=== PATIENT | female | born 1970 | race Caucasian/White ===

== ENCOUNTER → 2017-12-27 09:03 | Outpatient (CLI) | payer OTHER, SELFPAY ==
--- NOTE | 2017-12-27 09:06 | MM_ITS ---
MM Dig screening mamm BI w/CAD CAD Screening ORDERING PHYSICIAN : Deni Pham MD PATIENT AGE: 47 years GENDER: Female COMPARISON: Previous mammograms: March 2016 & February 2014 & January 2013 HISTORY. 47-year-old. Taking estradiol. Previous cyst aspiration needle biopsy left breast. Family history. Mother and cousin with breast cancer premenopausal TECHNIQUE: Standard CC and MLO images were obtained. R2 CAD reviewed. FINDINGS: Moderately dense breast bilaterally diffuse fibroglandular elements. However the prior studies are helpful and supportive stable appearance. Stable minor asymmetry. No significant new findings. Bilateral follow-up one year recommended. RIGHT BREAST:No significant new findings. Minimal density at the lateral retroareolar region is similar to thousand 14 dissipates on the MLO view.. Clip from previous percutaneous biopsy at the medial right breast LEFT BREAST:. No new findings. . Fibroglandular elements are most evident upper-outer quadrant deep left breast appears similar to previous studies dating back to 2012. IMPRESSION: Stable mammogram with no significant new areas of concern . Bilateral follow-up in one year recommended BI-RADS Category: 1 Negative RECOMMENDED FOLLOW-UP: 1YR - 1 YEAR FOLLOW-UP (A letter has been sent to the patient regarding results of the study.)
== END ==
PROVIDERS: PCP Internal Medicine; Visit Provider Nurse Practitioner Obstetrics & Gynecology
DX: Z12.31 Encounter for screening mammogram for malignant neoplasm of breast (principal)
CPT/HCPCS: 77067

== ENCOUNTER → 2018-10-22 14:45 | Outpatient (CLI) | payer OTHER, SELFPAY ==
--- NOTE | 2018-10-22 14:48 | XR_ITS ---
EXAM: XR cervical spine 5V HISTORY: Neck pain and stiffness ITS.REASON: CERVICALGIA,NECK SPASM ORDERING PHYSICIAN: Jeromy Abraham PATIENT AGE: 48 years COMPARISON: 10/26/2011 FINDINGS: There is straightening of the cervical lordosis which may be due to patient positioning or muscle spasm. No fracture or dislocation is evident. There is mild degenerative disc disease at C5-C6 with decrease in the disc space and small endplate osteophytes. There is mild foraminal narrowing on the left at C5-C6. No lytic or blastic change. No evidence of cervical rib. IMPRESSION: Mild degenerative disc disease at C5-C6 with mild left foraminal narrowing at that level. The degenerative disc disease has somewhat progressed compared to the previous exam
== END ==
PROVIDERS: PCP Internal Medicine; Visit Provider Internal Medicine
DX: M54.2 Cervicalgia (principal); M62.838 Other muscle spasm
CPT/HCPCS: 72050

== ENCOUNTER → 2019-01-06 08:35 | Outpatient (CLI) | payer OTHER, SELFPAY ==
--- NOTE | 2019-01-06 08:37 | MM_ITS ---
MM Dig screening mamm BI w/CAD CAD Screening COMPARISON: Digital mammograms with CAD 04/12/2016 and 12/27/2017 INDICATION: There is a history of breast cancer in patient's mother and cousin both diagnosed before menopause. There has been a previous cyst aspiration left breast. TECHNIQUE: Standard CC and MLO images were obtained. R2 CAD reviewed. FINDINGS: There is a diffusely dense and heterogenic parenchymal pattern lessening the sensitivity of mammography. The findings are bilateral and symmetrical. There is a biopsy clip right breast and a mole marker right breast and a mole marker left breast. There is no suspicious lesion and no suspicious microcalcifications. IMPRESSION: Diffusely dense parenchymal pattern with no suspicious lesion seen BI-RADS Category: 2 Benign Finding(s) RECOMMENDED FOLLOW-UP: 1YR - 1 YEAR FOLLOW-UP (A letter has been sent to the patient regarding results of the study.)
== END ==
PROVIDERS: PCP Internal Medicine; Visit Provider Nurse Practitioner Obstetrics & Gynecology
DX: Z12.31 Encounter for screening mammogram for malignant neoplasm of breast (principal)
CPT/HCPCS: 77067

== ENCOUNTER → 2019-07-28 08:32 | Outpatient (CLI) | payer OTHER, SELFPAY | PROVIDERS: PCP Internal Medicine; Visit Provider Physician Assistant | DX: R00.2 Palpitations (principal) | CPT/HCPCS: 93225 ==

== ENCOUNTER → 2019-07-30 11:10 | Outpatient (CLI) | payer OTHER, SELFPAY ==
--- NOTE | 2019-07-30 11:13 | CA_ITS ---
APPROVED REPORT EXAM: Comprehensive 2D, Doppler, and color-flow Echocardiogram Patcher Bowling Ball: Mariann Barcenas RDCS Ht: 5 ft 5 in Wt: 160lbs BSA: 1.80 BP: 153/97 mmHg Indications: Shortness of Breath, Palpitations, Hypertension/HDD 2D Dimensions LVOT 1.90 cm (M/F) 1.5-2.5 M-Mode Dimensions RVDd 2.30 cm (0.9-2.6) LA Diam 2.70 cm (1.9-4.0) LVDd 5.10 cm (3.5-5.7) Ao Diam 3.00 cm (2.0-3.7) LVDs 3.90 cm (3.5-5.7) AV Cusp 1.70 cm (1.5-2.6) IVSd 0.70 cm (0.6-1.1) PWd 0.70 cm (0.6-1.1) EF (Teich) 46.90% FS 23.50% EDV (Teich) 124.00 mL ESV (Teich) 65.90 mL LV Diastology E/A Ratio 1.3 MED E' 7.60 (< 7 cm/sec) E'/MED E' Ratio 9.20 (>14) LAT E' 10.00 (<10 cm/sec) E/LAT E' Ratio 7.00 (>14) Mitral Valve MV E Max Dario. 69.60 (40-130 cm/s) MV A Velocity 54.80 (40-130 cm/s) E/A Ratio 1.30 Left Ventricle Left atrium is upper limit of the normal size, left ventricle is normal size, left ventricle wall thickness is upper limit of the normal, there is preserved left ventricular systolic function, visually estimated ejection fraction 55% with no regional wall motion abnormality. Diastolic parameters are within normal range. Right Ventricle Right atrium and right ventricular normal size and contractility. Aortic Valve Aortic valve is grossly normal, there is no aortic stenosis aortic insufficiency. Mitral Valve Mitral valve is grossly normal, there is no mitral stenosis, there is mild mitral regurgitation. Tricuspid Valve Tricuspid valve is grossly normal, there is mild tricuspid regurgitation, tricuspid regurgitation jet velocity is inadequate for calculation of the right ventricular systolic pressure. Pulmonic Valve Pulmonic valve is poorly visualized. Great Vessels Aortic root is normal size. Pericardium No significant pericardial effusion noted. Conclusion 1. Normal left ventricular size, preserved left ventricular systolic function, visually estimated ejection fraction 55% with no regional wall motion abnormality, diastolic parameters are within normal range. 2. Mild mitral and tricuspid regurgitation 3. No significant pericardial effusion noted. Electronically signed by : Andrew Burns, 07/30/2019 16:57:47
== END ==
PROVIDERS: PCP Internal Medicine; Visit Provider Physician Assistant
DX: R00.2 Palpitations (principal); R06.00 Dyspnea, unspecified
CPT/HCPCS: 93306

== ENCOUNTER → 2020-02-08 08:41 | Outpatient (CLI) | payer OTHER, SELFPAY ==
--- NOTE | 2020-02-08 08:42 | MM_ITS ---
PROCEDURE: MM DIG SCREENING MAMM BI W/CAD Digital Breast Tomosynthesis Included CLINICAL INDICATION: screening xmg There is a history of breast cancer patient's mother and cousin both diagnosed before menopause. There has been a previous cyst aspiration and needle biopsy right breast. COMPARISON: [id number] DIG MAMM-DX UNI ADD VIEWS-RT from 04/25/2016 [facility] MM Dig screening mamm BI w/CAD from 12/27/2017 [facility] MM Dig screening mamm BI w/CAD from 01/06/2019 TECHNIQUE: Standard CC and MLO images and 3D Tomosynthesis was obtained. R2 CAD reviewed. FINDINGS: Prominent somewhat heterogenic fibroglandular densities are seen throughout both breast primarily upper outer quadrants. There is a mole marker on each breast and there is a biopsy clip right breast. Shawn images are most helpful in this type of dense breast parenchyma. There is no new or suspicious lesion in either breast and no suspicious microcalcifications. There are small nodes right axilla. IMPRESSION: Stable dense parenchymal pattern with no suspicious lesions seen BI-RAD Category: 2 Benign Finding(s) FOLLOW-UP: 1YR 1 Year Follow-up (A letter has been sent to the patient regarding results of the study.) Dictated by: Dr. Rosendo Knox MD 02/08/2020 16:[address] Rosendo Knox MD in [place] 02/08/2020 16:00
== END ==
PROVIDERS: PCP Internal Medicine; Visit Provider Nurse Practitioner Obstetrics & Gynecology
DX: Z12.31 Encounter for screening mammogram for malignant neoplasm of breast (principal)
CPT/HCPCS: 77063; 77067

== ENCOUNTER → 2020-09-15 11:29 | Outpatient (CLI) | payer OTHER, SELFPAY ==
[2020-09-15 14:22] LABS: Coronavirus 19 IgG Antibody Negative (Negative); Coronavirus 19 IgM Antibody Negative (Negative)
== END ==
PROVIDERS: Visit Provider Internal Medicine Gastroenterology
DX: Z01.818 Encounter for other preprocedural examination (principal); Z13.810 Encounter for screening for upper gastrointestinal disorder
CPT/HCPCS: 36415; 86328

== ENCOUNTER 2020-09-16 06:38 | Day surgery (SDC) | payer OTHER, SELFPAY ==
[2020-09-13 12:44] VITALS: BMI 26.6
[2020-09-16] VITALS (7 sets, daily range): BP systolic 98–121; BP diastolic 68–82; PULSE 79–89; RESP 16–18; TEMP 36.3; O2SAT 96–100
--- NOTE | 2020-09-16 07:34 | HMH.ANESCL ---
[facility] Anesthesia Checklist - Patient Identification Patient Identification: Arm Band, Verbal (Name & ) - Structural Data Admitted From: Home Planned Operative Procedure/s: EGD Consent for Planned Operative Procedure(s) Verified: Yes Verified Documents: Surgical Consent, History and Physical - NPO Status Verified Time NPO: 00:00 - Chart Verification Results Verified: CBC, BMP - Additional verifications Anesthesia Reactions: Yes (PONV) - Airway Assessment C-Spine Mobility Assessed: Yes TMJ Mobility Assessed: Yes Dentition: Good Dentition - Neurological Assessment Level of Consciousness: Awake, Alert, Appropriate, Follows Commands Hx Seizures: No Numbness or tingling in extremities: No - Anesthesia Plan Anesthesia Risk discussed: Yes Anesthesia Plan: Verified ASA Class: II Anesthesia Type: MAC [facility] History I have reviewed the patient's past medical history: Yes Medical History: Reports:: Anxiety, Cancer, Gastroesophageal Reflux Disease(GERD) Denies:: Asthma, Depression, Diabetes Mellitus Type 1, Diabetes Mellitus Type 2, Internal Pacemaker, MRSA, Seizures *Have you ever received a pneumonia vaccine?: Yes *Have you received a flu vaccine this season?: Yes Anesthesia experience/problems:: PONV Laterality Cases: Bilateral: Tonsillectomy Other Surgeries: Yes: Cholecystectomy, Hysterectomy-Total. No: Pacemaker Amputation: No Fractures: No - *Social History Last grade of school completed: Some college Smoking Status: Never smoker Alcohol Intake: current Alcohol Intake Frequency:: holidays/special occasions only Substance Use Type: denies use *Occupational Status:: employed Housing: house Household Members: spouse *Travel in the last 8 weeks: None - Psychiatric History Pschychiatric History:: Reports:: Anxiety Denies:: Depression Family Hx:: Cancer, Diabetes, Heart Attack
--- NOTE | 2020-09-16 07:50 | P.PCN_ITS ---
[facility] Procedure Note Procedure Note:: Upper Endoscopy Procedure Report: Esophagogastroduodenoscopy with cold biopsies and TTS balloon dilation Endoscopost: Carlos Moreno II, MD Referring Physician: Jeromy Abraham MD Date of Procedure: September 16, 2020 Equipment: Olympus GIF 180 standard upper endoscope Sedation: MAC sedation Indications: Mrs. Matos is a 50-year-old female with epigastric abdominal discomfort and dyspepsia. She also has had fullness and early satiety. She reports some dysphagia and globus sensation. She has had 2 regurgitate intermittently. She reports retrosternal chest pain and pressure intermittently with heartburn and reflux. She reports bloating but no nausea. She does have some constipation. EGD is performed for further evaluation. Procedure: Prior to the procedure, a history and physical exam was performed, and patient's medications and allergies were reviewed. The risks, benefits and alternatives of the sedation and procedure were discussed with the patient. All questions were answered and informed consent was obtained. The patient was brought to the procedure room. Patient identification and proposed procedure were verified by the physician and the nurse. The patient was placed in a left lateral decubitus position and the scope was passed under direct vision. Throughout the procedur e, the patient's blood pressure, pulse, and oxygen saturations were monitored continuously. The upper GI endoscopy was accomplished without difficulty. The patient tolerated the procedure well. Findings: The scope was passed directly into the upper esophagus and advanced to the third portion of the duodenum. The post bulbar duodenum and duodenal bulb were normal with normal mucosa and conniventes. The scope was withdrawn through a normal duodenal bulb and pylorus into the stomach. There was bile reflux with linear reactive gastropathy of the antrum and body of the stomach. The remainder of the antrum, body and fundus of the stomach were grossly normal. Upon retroflexion there was no hiatal hernia. 2 biopsies were taken in the antrum and along the lesser curvature for histology to rule out gastritis and/or H pylori. The scope was then withdrawn into the esophagus. There was a serrated Z-line but no evidence of reflux esophagitis or Barragan's. Biopsies were taken at the GE junction. There were tertiary contractions and evidence of moderate esophageal dysmotility. The entire esophagus was dilated to 60 German/20 mm with a TTS hydrostatic balloon. There was some mild resistance at the cricopharyngeus. The remainder of the esophageal mucosa was normal. Impression: 1. Nonerosive GERD with moderate esophageal dysmotility and cricopharyngeal spasm status post dilation to 20 mm 2. Bile reflux with linear reactive gastropathy Plan: The patient does have functional dyspepsia and functional GERD. This is related to gas pressure gradients from obstipation. We will discuss additional dietary measures and treatment options. I will follow-up the biopsies.
== END 2020-09-16 08:46 | disposition home or self-care (01) ==
LOC: OUTP 06:39
PROVIDERS: PCP Internal Medicine; Visit Provider Internal Medicine Gastroenterology
PROC: 0DJ08ZZ Inspection of Upper Intestinal Tract, Via Natural or Artificial Opening Endoscopic (ICD-10-PCS; CPT 43235; principal; 2020-09-16 07:30)
DX: K21.9 Gastro-esophageal reflux disease without esophagitis (principal); K22.4 Dyskinesia of esophagus; J39.2 Other diseases of pharynx; K31.9 Disease of stomach and duodenum, unspecified; F41.9 Anxiety disorder, unspecified; Z80.9 Family history of malignant neoplasm, unspecified; Z83.3 Family history of diabetes mellitus; Z82.49 Family history of ischemic heart disease and other diseases of the circulatory system; Z84.89 Family history of other specified conditions; Z88.6 Allergy status to analgesic agent; Z88.8 Allergy status to other drugs, medicaments and biological substances
CPT/HCPCS: 43239; 43249; C1726

== ENCOUNTER → 2020-09-28 13:12 | Outpatient (CLI) | payer OTHER, SELFPAY ==
--- NOTE | 2020-09-28 13:16 | XR_ITS ---
PROCEDURE: XR TIBIA FIBULA LT 2V CLINICAL INDICATION: pain Fall with injury and pain guided I did COMPARISON: CR XR KNEE LT 4V from 09/28/2020 FINDINGS: No fracture or dislocation. No lytic or blastic change. There is normal mineralization. The joint spaces are well-preserved. No significant degenerative/arthritic changes. No erosive changes evident. Other findings:None. IMPRESSION: No acute findings. Dictated by: Mason Esquivel MD 09/28/2020 14:06 Mason Esquivel MD in [place] 09/28/2020 14:06
--- NOTE | 2020-09-28 13:16 | XR_ITS ---
PROCEDURE: XR KNEE LT 4V CLINICAL INDICATION: knee pain due to fall COMPARISON: No exams were available for comparison FINDINGS: No fracture or dislocation. No lytic or blastic change. There is normal mineralization. The joint spaces are well-preserved. No significant degenerative/arthritic changes. No erosive changes evident. Other findings:None. IMPRESSION: No acute findings. Dictated by: Mason Esquivel MD 09/28/2020 14:05 Mason Esquivel MD in [place] 09/28/2020 14:05
== END ==
PROVIDERS: PCP Internal Medicine; Visit Provider Orthopaedic Surgery
DX: M79.662 Pain in left lower leg (principal); M25.562 Pain in left knee
CPT/HCPCS: 73564; 73590

== ENCOUNTER 2020-09-29 14:09 | Outpatient (RCR) | payer OTHER, SELFPAY | END 2020-09-29 14:27 | disposition home or self-care (01) | LOC: PT 14:09 | PROVIDERS: Visit Provider Orthopaedic Surgery | DX: M25.562 Pain in left knee (principal); S80.12XA Contusion of left lower leg, initial encounter | CPT/HCPCS: 97760 ==

== ENCOUNTER → 2021-02-22 08:36 | Outpatient (CLI) | payer OTHER, SELFPAY ==
--- NOTE | 2021-02-22 08:36 | MM_ITS ---
PROCEDURE: MM DIG SCREENING MAMM BI W/CAD Digital Breast Tomosynthesis Included CLINICAL INDICATION: screening xmg There is a history of breast cancer in patient's mother diagnosed before menopause and the patient's maternal cousin diagnosed before menopause. There has been a previous biopsy right breast for benign disease. Patient currently is on estrogen. The patient complains of thickness and pain upper central left breast COMPARISON: MG [facility] MM Dig screening mamm BI w/CAD from 12/27/2017 MG [facility] MM Dig screening mamm BI w/CAD from 01/06/2019 MG MM DIG SCREENING MAMM BI W/CAD from 02/08/2020 TECHNIQUE: Standard CC and MLO images and 3D Tomosynthesis was obtained. R2 CAD reviewed. FINDINGS: There is a markedly and diffusely dense and heterogenic parenchymal pattern lessening the sensitivity mammography. The findings are bilateral and symmetrical. Shawn images are most helpful with this type of dense breast parenchyma. There is a mole marker right breast and a biopsy clip right breast. There is no suspicious lesion in either breast and no suspicious microcalcifications. There is no new or suspicious lesion in either breast and no suspicious microcalcifications. IMPRESSION: Stable diffusely dense and heterogenic parenchymal pattern with no suspicious lesions seen BI-RAD Category: 2 Benign Finding(s) FOLLOW-UP: 1YR 1 Year Follow-up (A letter has been sent to the patient regarding results of the study.) Dictated by: Dr. Rosendo Knox MD 02/25/2021 13:05 Dr. Rosendo Knox MD in [place] 02/25/2021 13:05
== END ==
PROVIDERS: PCP Internal Medicine; Visit Provider Nurse Practitioner Obstetrics & Gynecology
DX: Z12.31 Encounter for screening mammogram for malignant neoplasm of breast (principal)
CPT/HCPCS: 77063; 77067

== ENCOUNTER → 2021-09-02 11:05 | Outpatient (CLI) | payer OTHER, SELFPAY ==
[2021-09-02 12:33] LABS: Coronavirus 19, PCR Not Detected (NotDetected); Influenza A, PCR Not Detected (NotDetected); Influenza B, PCR Not Detected (NotDetected)
== END ==
PROVIDERS: PCP Internal Medicine; Visit Provider Nurse Practitioner Family
DX: Z20.822 Contact with and (suspected) exposure to COVID-19 (principal)
CPT/HCPCS: C9803; U0003; U0005

== ENCOUNTER → 2022-03-15 10:16 | Outpatient (CLI) | payer OTHER, SELFPAY ==
--- NOTE | 2022-03-15 10:21 | XR_ITS ---
FINAL REPORT CLINICAL HISTORY: LEFT FOOT PAIN. HISTORY OF OLD TRAMMA FINDINGS: LEFT FOOT Three views were obtained. There is no acute fracture or dislocation. The joint spaces appear normal. No soft tissue abnormality is identified. IMPRESSION: No acute process. Reviewed, Interpreted and Dictated by Pk Rosas MD Transcribed by Yasmeen Washington Authenticated by Pk Rosas MD on 03/15/2022 11:20:27 AM [facility]
== END ==
PROVIDERS: PCP Internal Medicine; Visit Provider Internal Medicine
DX: M79.672 Pain in left foot (principal); Z87.828 Personal history of other (healed) physical injury and trauma
CPT/HCPCS: 73630

== ENCOUNTER → 2022-03-29 15:37 | Outpatient (CLI) | payer OTHER, SELFPAY ==
--- NOTE | 2022-03-29 15:42 | MR_ITS ---
PROCEDURE INFORMATION: Exam: MR Left Lower Extremity Joint Without Contrast; Ankle Exam date and time: 03/29/2022 3:52 PM Age: 51 years old Clinical indication: Pain; Ankle; Left; Additional info: Ankle pain. Medial sided ankle pain with pain around toes that radiates to dorsal aspect [id number]. No recent injury or trauma. Swelling medial and dorsal aspect of ankle. PT was in prone plantar flexed position TECHNIQUE: Imaging protocol: MR of the Left lower extremity without contrast. Exam focused on the ankle. COMPARISON: CR XR FOOT LT MIN 3V 03/15/2022 10:27 AM FINDINGS: Bones and joint spaces: No acute fracture or stress reaction. Small focus of nonspecific subchondral edema in the posterior tibial plateau. Subchondral cyst in the 2nd metatarsal base. Minimal to mild degenerative changes of the foot. LIGAMENTS: Distal tibiofibular syndesmosis: Unremarkable. No tear. Anterior talofibular ligament: Unremarkable. No tear. Posterior talofibular ligament: Unremarkable. No tear. Calcaneofibular ligament: Unremarkable. No tear. Deltoid ligament complex: Unremarkable. No tear. Lisfranc ligament: Intact. TENDONS: Flexor tendons of foot: Mild tenosynovitis of the flexor hallucis longus tendon. Tibialis posterior tendon: Mild tenosynovitis of the posterior tibialis tendon. Peroneal tendons: Unremarkable as visualized. Extensor tendons of foot: Unremarkable as visualized. Tibialis anterior tendon: Unremarkable as visualized. Achilles tendon: Unremarkable as visualized. Tarsal canal (Sinus tarsi): Unremarkable. Normal signal of the fat. Tarsal tunnel: Unremarkable. Muscles: Unremarkable. Soft tissues: Nonspecific bimalleolar subcutaneous edema is present, medial greater than lateral. No organized/drainable fluid collection. Plantar fascia: Plantar fascia appears within normal limits, without significant thickening or tear. Nonspecific heterogeneous appearance of subcutaneous adipose tissue in the heel. IMPRESSION: 1. Mild tenosynovitis of the flexor hallucis longus and posterior tibialis tendons. No tendon tear. 2. Nonspecific mild bimalleolar subcutaneous edema, medial greater than lateral. 3. Negative for fracture, stress reaction, and ligament tear.
== END ==
PROVIDERS: PCP Internal Medicine; Visit Provider Orthopaedic Surgery
DX: M25.572 Pain in left ankle and joints of left foot (principal)
CPT/HCPCS: 73721

== ENCOUNTER → 2022-09-12 15:50 | Outpatient (CLI) | payer OTHER, SELFPAY ==
--- NOTE | 2022-09-12 15:50 | MM_ITS ---
PROCEDURE INFORMATION: Exam: MG Bilateral Screening 3D Mammography Exam date and time: 09/12/2022 3:45 PM Age: 52 years old Clinical indication: Screening. Her mother had breast cancer at age 42 and a maternal aunt and maternal cousin had breast cancer. TECHNIQUE: Imaging protocol: Bilateral Screening tomosynthesis and 2D mammography including computer-aided detection (CAD) when performed. COMPARISON: 1. MG MM DIG SCREENING MAMM BI W/CAD 02/22/2021 8:50 AM 2. MG MM DIG SCREENING MAMM BI W/CAD 02/08/2020 9:46 AM 3. MG [facility] MM Dig screening mamm BI w/CAD 01/06/2019 8:51 AM 4. MG [facility] MM Dig screening mamm BI w/CAD 12/27/2017 9:14 AM FINDINGS: MAMMOGRAPHY: Breast composition: The breasts are heterogeneously dense, which may obscure small masses. Mass: No suspicious mass. Architectural distortion: None. Calcifications: No suspicious calcifications. Asymmetric density: None. Skin thickening: None. Axillary adenopathy: None. Other: Right biopsy clip. IMPRESSION: No mammographic evidence of malignancy. Annual screening is recommended unless otherwise clinically indicated. Given the reported risk factors coupled with the patient's breast density, a breast cancer risk assessment may prove useful for further evaluation. ASSESSMENT: BI-RADS Category 2: Benign
== END ==
PROVIDERS: PCP Internal Medicine; Visit Provider Nurse Practitioner Obstetrics & Gynecology
DX: Z12.31 Encounter for screening mammogram for malignant neoplasm of breast (principal)
CPT/HCPCS: 77063; 77067

== ENCOUNTER → 2023-04-23 10:12 | Outpatient (CLI) | payer OTHER, SELFPAY ==
--- NOTE | 2023-04-23 10:17 | XR_ITS ---
FINAL REPORT CLINICAL HISTORY: pointer finger pain, prior sx on left wrist to remove cyst and carpal tunnel FINDINGS: 3 views of the left hand were obtained. There is no acute fracture or dislocation. Moderate degenerative changes of the DIP and PIP joints are most pronounced in the second digit. There is no soft tissue abnormality. IMPRESSION: No acute process. Reviewed, Interpreted and Dictated by Judson Anderson MD Transcribed by Manan Yepez Authenticated and [facility]
== END ==
PROVIDERS: PCP Internal Medicine; Visit Provider Orthopaedic Surgery
DX: M79.642 Pain in left hand (principal)
CPT/HCPCS: 73130

== ENCOUNTER → 2023-05-22 14:14 | Outpatient (CLI) | payer OTHER, SELFPAY ==
--- NOTE | 2023-05-22 14:14 | MR_ITS ---
FINAL REPORT CLINICAL HISTORY: LEFT 2ND MCP PAIN X 2 MONTHS SWELLING WHEN OVER USING FINDINGS: Multiplanar MR imaging of the left hand was performed without contrast. There is no evidence of fracture or bone marrow edema. No bony mass is identified. There is abnormal signal and morphology of the radial collateral ligament of the second metacarpal-phalangeal joint, well visualized on series 9 images 6-8. This has an appearance most worrisome for a high-grade partial tear. Soft tissue edema is seen adjacent to the second metacarpal-phalangeal joint. The other ligaments appear intact. The musculature is intact. IMPRESSION: Abnormal appearance of the radial collateral ligament of the second metacarpal-phalangeal joint most worrisome for a high-grade partial tear with adjacent soft tissue edema. Authenticated and [facility]
== END ==
PROVIDERS: PCP Internal Medicine; Visit Provider Orthopaedic Surgery
DX: M79.642 Pain in left hand (principal)
CPT/HCPCS: 73218

== ENCOUNTER → 2023-10-03 08:15 | Outpatient (CLI) | payer OTHER, SELFPAY ==
[2023-10-03 08:35] LABS: Basophils # 0.1 K/mm3 (0-0.2); Basophils % 0.9 % (0.1-2.0); Eosinophils # 0.3 K/mm3 (0.0-0.4); Eosinophils % 4.7 % (0.1-12.0); Hematocrit 40.4 % (37.0-47.0); Hemoglobin 14.7 g/dL (12.2-16.2); Lymphocytes # 1.7 K/mm3 (0.7-4.5); Lymphocytes % 29.1 % (10-50); Mean Corpuscular HGB Conc 36.5 g/dL (31.8-35.4); Mean Corpuscular Hemoglobin 33.7 pg (27.0-31.2); Mean Corpuscular Volume 92.6 fl (81-99); Mean Platelet Volume 8.1 fl (7.4-10.4); Monocytes # 0.3 K/mm3 (0.1-1.0); Monocytes % 5.7 % (1.7-9.3); Neutrophils # 3.4 K/mm3 (1.8-7.8); Neutrophils % 59.6 % (37.0-80.0); Platelet Count 247 K/mm3 (142-424); Red Blood Count 4.37 M/mm3 (4.20-5.40); Red Cell Distribution Width 13.4 % (11.5-17.5); White Blood Count 5.7 K/mm3 (4.8-10.8)
[2023-10-03 08:59] LABS: Alanine Aminotransferase 27 U/L (12-78); Albumin Level 4.2 g/dl (3.5-5.0); Albumin/Globulin Ratio 1.7 (1.1-1.8); Alkaline Phosphatase 51 U/L (38-126); Anion Gap 12.6 mEq/L (5-15); Aspartate Amino Transferase 26 U/L (14-36); Bilirubin,Total 0.6 mg/dl (0.2-1.3); Blood Urea Nitrogen 16 mg/dl (7-17); Carbon Dioxide 29 mmol/L (22.0-30.0); Chloride 100 mmol/L (98-107); Cholesterol 169 mg/dl (140-200); Estimated Glomerular Filt Rate 66 ml/min (>60); GFR (African American) 80 ML/MIN (>60); Globulin 2.5 g/dL (1.3-3.2); Glucose 105 mg/dl (74-100); HDL Cholesterol 42 mg/dl (40-60); Potassium 4.6 mmoL/L (3.5-5.1); Sodium 137 mmol/L (136-145); Total Protein,Serum 6.7 g/dl (6.3-8.2); Triglycerides 180 mg/dl (30-150); VLDL Cholesterol 36 mg/dL (0-40)
[2023-10-03 09:09] LABS: Direct LDL Cholesterol 99.19 mg/dL (100-129)
== END ==
PROVIDERS: PCP Internal Medicine; Visit Provider Internal Medicine
DX: R03.0 Elevated blood-pressure reading, without diagnosis of hypertension (principal); G43.009 Migraine without aura, not intractable, without status migrainosus; E78.5 Hyperlipidemia, unspecified
CPT/HCPCS: 36415; 80053; 80061; 85025

== ENCOUNTER → 2023-10-09 09:56 | Outpatient (CLI) | payer OTHER, SELFPAY ==
--- NOTE | 2023-10-09 09:56 | MM_ITS ---
PROCEDURE INFORMATION: Exam: MG Bilateral Screening 3D Mammography Exam date and time: 10/09/2023 1:07 PM Age: 53 years old Clinical indication: Screening examination TECHNIQUE: Imaging protocol: Bilateral Screening tomosynthesis and 2D mammography including computer-aided detection (CAD) when performed. COMPARISON: 1. MG MM DIG SCREENING MAMM BI W/CAD 09/12/2022 3:45 PM 2. MG MM DIG SCREENING MAMM BI W/CAD 02/22/2021 8:50 AM FINDINGS: MAMMOGRAPHY: Breast composition: The breasts are heterogeneously dense, which may obscure small masses. Mass: None. Architectural distortion: None. Calcifications: No suspicious calcifications. Asymmetric density: None. Skin thickening: None. Axillary adenopathy: None. IMPRESSION: No mammographic evidence of malignancy. Annual screening is recommended unless otherwise clinically indicated. ASSESSMENT: BI-RADS Category 1: Negative
== END ==
PROVIDERS: PCP Internal Medicine; Visit Provider Nurse Practitioner Obstetrics & Gynecology
DX: Z12.31 Encounter for screening mammogram for malignant neoplasm of breast (principal)
CPT/HCPCS: 77063; 77067

== ENCOUNTER 2024-04-15 11:24 | Outpatient (CLI) | payer OTHER, SELFPAY ==
--- NOTE | 2024-04-15 | XR_ITS ---
FINAL REPORT CLINICAL HISTORY: Right-sided pain COMPARISON: None FINDINGS: SACROILIAC JOINTS SERIES Three views were obtained. There is no acute fracture or dislocation. The joint spaces appear normal. The visualized bony structures are well aligned. No soft tissue abnormality is seen. IMPRESSION: No acute bony abnormality. Reviewed, Interpreted and Dictated by Pk Rosas MD Transcribed by Mali Otoole Authenticated and . [facility]
--- NOTE | 2024-04-15 11:30 | XR_ITS ---
FINAL REPORT CLINICAL HISTORY: RT SI JOINT PAIN,RT SCIATICA PAIN COMPARISON: None FINDINGS: SINGLE VIEW PELVIS: A single view of the pelvis was obtained. There is no acute fracture or dislocation. There are mild hypertrophic changes of the acetabular margin. The hip joint spaces are preserved. Soft tissues are unremarkable. IMPRESSION: Mild hypertrophic changes without acute bony abnormality. Reviewed, Interpreted and Dictated by Pk Rosas MD Transcribed by Mali Otoole Authenticated and [facility]
--- NOTE | 2024-04-15 11:30 | XR_ITS ---
FINAL REPORT CLINICAL HISTORY: RT SI JOINT PAIN,RT SCIATICA PAIN COMPARISON: None FINDINGS: LUMBOSACRAL SPINE SERIES Five views of the lumbosacral spine were obtained. There is no fracture present. There is no malalignment. There is mild anterior osteophyte formation at L1-2, L2-3, and L3-4. Moderate facet sclerosis is noted in the lower lumbar spine. IMPRESSION: No acute process. Reviewed, Interpreted and Dictated by Pk Rosas MD Transcribed by Mali Otoole Authenticated and [facility]
== END 2024-04-15 23:59 | disposition home or self-care (01) ==
LOC: RAD 11:25
PROVIDERS: PCP Internal Medicine; Visit Provider Internal Medicine
DX: M46.1 Sacroiliitis, not elsewhere classified (principal); M54.31 Sciatica, right side
CPT/HCPCS: 72110; 72170; 72202

== ENCOUNTER 2024-05-20 07:33 | Outpatient (CLI) | payer OTHER, SELFPAY ==
--- NOTE | 2024-05-20 07:41 | MR_ITS ---
FINAL REPORT CLINICAL HISTORY: back pain bilateral hip and leg pain x 6 months 15 ml prohance given COMPARISON: 09/25/2016 FINDINGS: Multiplanar MR imaging of the lumbar spine was performed without and with contrast. On the sagittal T2-weighted images, disc degeneration is seen at multiple levels. There is mild anterolisthesis of L3 on L4. There is no evidence of fracture. The conus is seen at approximately the L1 level and has an unremarkable appearance. L1-2: An annular bulge is present. No significant canal stenosis or neuroforaminal narrowing is seen. L2-3: An annular bulge is present. No significant canal stenosis or neuroforaminal narrowing is seen. L3-4: An annular bulge is present. No significant canal stenosis or neuroforaminal narrowing is seen. L4-5: An annular disc bulge with facet arthropathy is present. No significant canal stenosis or neuroforaminal narrowing is seen. L5-S1: An annular bulge is present. There is mild right neuroforaminal narrowing. No abnormal contrast enhancement is identified. IMPRESSION: Multilevel mild degenerative disc disease and spondylosis with mild neuroforaminal narrowing at L5-S1. Reviewed, Interpreted and Dictated by Ranulfo Brown III, MD Transcribed by Birgit Sykes Authenticated and [facility]
[2024-05-20] MEDS: GADOTERIDOL INJ 20ML SYRINGE 15 ML IV (08:22)
[2024-05-20] MEDS: SODIUM CHLORIDE 0.9% 10ML SYR (RAD ONLY) 10 ML IV (08:22)
== END 2024-05-20 23:59 | disposition home or self-care (01) ==
LOC: RAD 07:34
PROVIDERS: PCP Internal Medicine; Visit Provider Internal Medicine
DX: M51.36 Other intervertebral disc degeneration, lumbar region (principal); M47.896 Other spondylosis, lumbar region; M54.50 Low back pain, unspecified
CPT/HCPCS: 72158; A9576

== ENCOUNTER 2024-06-11 09:07 | Outpatient (POV) | payer OTHER, SELFPAY ==
[2024-06-11 09:11] VITALS: BP 131/80; PULSE 64; RESP 18; O2SAT 98; BMI 27.4
--- NOTE | 2024-06-11 09:33 | EXP.PAIN.OV ---
HPI Data of Consult Patient: new to practice Consult date: 06/11/24 Requesting Physician: Marika Avila APRN Primary Care Provider: Jeromy Abraham MD Consult Narrative Reason for consult: Low back pain, bilateral hip pain, right groin pain History of present illness: Ms. Matos is a 53 year old female who presents today as a new patient. She has a referral from Dr. Abraham's office. Patient rates her pain today a 6 out of 10. Patient states that she is experiencing significant pain that is typically in her bilateral hips with the right side being worse than the left and does go into her groin area. Patient states that this is been going on for over 2 years unrelated to any specific trauma or injury. She does describe it like a aching, numbness with tingling and almost feels like a nervelike sensation. Patient states the pain is constant and it does seem aggravated by prolonged sitting as well as the mornings are worse. She does state the pain interferes with her ability perform activities of daily living such as cooking and cleaning. Patient does state that she has tried [id number] Tylenol and ibuprofen along with heat and ice and topicals with minimal relief. Patient does state that she continues to use ice and ibuprofen 800 mg twice daily daily and that the ibuprofen at least seems to take the edge off however never takes it away. Patient does states she has had a history of bursitis in the past and did do injections that did significantly help. Patient does state that in the past she also tried topicals such as Biofreeze that initially really helped however over time became less and less effective. Patient was given Flexeril however states that it knocks her out and that she tries not to take this often. Patient has been tried with physical therapy however only got temporary relief however she is continued to do at home exercise and stretching that was physical therapist guided over the last 12 weeks with no additional change. She is interested in any help we may be able to provide.Patient is not on any scheduled medications. Her Loy has been reviewed and is appropriate. CC: Marika Avila APRN [facility] Disclaimer: The information contained in this section may have been updated after the patient was seen, as this information can be updated by other users. Medical History delivery delivered Chest pain Dizziness Dyspnea Edema Palpitations Surgical History H/O: hysterectomy History of cholecystectomy History of tonsillectomy and adenoidectomy Family History (Updated 06/11/24 @ 09:11 by Jeniffer Recinos RN) Other No significant family history Social History Smoking Status: Never smoker alcohol intake: current alcohol intake frequency: holidays/special occasions only substance use type: denies use current occupational status: employed Travel in the last 8 weeks: None household members: spouse housing: house current occupation: [employer] caffeine: Yes Review of Systems Review of Systems Review of systems:: pertinent systems reviewed and negative unless documented below Review of systems (narrative): Review of Systems: General: No recent weight changes, no fever, no sleep disturbances Respiratory: No cough, no shortness of air, no recurring pulmonary infections Cardiovascular/peripheral vascular: No chest pain, no palpitations, no edema, no shortness of breath Gastrointestinal: No new onset incontinence, normal bowel movements reported Genitourinary: No new onset incontinence Musculoskeletal: Low back pain, bilateral hip pain, right groin pain Psychiatric: [Normal mood/affect] Neurological: [Denies weakness in extremities], [denies balance issues] Meds Home Medications and Allergies Home Medications ?Medication ?Instructions ?Recorded ?Confirmed ?Type estradiol 2 mg tablet 2 mg PO DAILY #90 tabs 09/10/23 09/10/23 Rx bupropion HCl 300 mg 24 hr tablet, See Rx Instructions .Route 03/23/24 Rx extended release .COMPLEX #30 tabs propranolol 80 mg capsule,24 80 mg PO DAILY To prevent migraine 05/25/24 Rx hr,extended release headaches #90 caps New Prescriptions to Start Prescriptions: Allergies Allergy/AdvReac Type Severity Reaction Status Date / Time propoxyphene Allergy Unknown CHEST Verified 09/10/23 11:16 [From DARVOCET-N] PRESSURE codeine AdvReac Mild NA-NAUSEA/V Verified 09/10/23 11:16 OMITING Objective Vital signs: Pulse Resp BP Pulse Ox O2 Del Method 64 18 131/80 98 Room Air 06/11/24 09:11 06/11/24 09:11 06/11/24 09:11 06/11/24 09:11 06/11/24 09:11 Narrative: Physical Exam: General: Alert and oriented x3, no acute distress, pleasant and cooperative Lungs: Respirations even and unlabored, symmetrical chest expansion Eyes: PERRL Musculoskeletal: Flexion and extension of lumbar [spine] somewhat guarded secondary to pain, [antalgic gait noted] point tenderness along bilateral SIs with positive bilateral Gisela's, Hiro's, Gaenslen's, compression and distraction exam Neurological: Speech clear, no gross sensory deficit Additional findings Additional findings: FINDINGS: Multiplanar MR imaging of the lumbar spine was performed without and with contrast. On the sagittal T2-weighted images, disc degeneration is seen at multiple levels. There is mild anterolisthesis of L3 on L4. There is no evidence of fracture. The conus is seen at approximately the L1 level and has an unremarkable appearance. L1-2: An annular bulge is present. No significant canal stenosis or neuroforaminal narrowing is seen. L2-3: An annular bulge is present. No significant canal stenosis or neuroforaminal narrowing is seen. L3-4: An annular bulge is present. No significant canal stenosis or neuroforaminal narrowing is seen. L4-5: An annular disc bulge with facet arthropathy is present. No significant canal stenosis or neuroforaminal narrowing is seen. L5-S1: An annular bulge is present. There is mild right neuroforaminal narrowing. No abnormal contrast enhancement is identified. IMPRESSION: Multilevel mild degenerative disc disease and spondylosis with mild neuroforaminal narrowing at L5-S1. Reviewed, Interpreted and Dictated by Ranulfo Brown III, MD Transcribed by Birgit Sykes Authenticated and . [facility] FINDINGS: SINGLE VIEW PELVIS: A single view of the pelvis was obtained. There is no acute fracture or dislocation. There are mild hypertrophic changes of the acetabular margin. The hip joint spaces are preserved. Soft tissues are unremarkable. IMPRESSION: Mild hypertrophic changes without acute bony abnormality. Reviewed, Interpreted and Dictated by Pk Rosas MD Transcribed by Mali Otoole Authenticated and . [facility] Assessment and Plan *Assessment and plan (1) Degenerative disc disease, lumbar: Status: Acute Category: Medical Code(s): M51.36 - Other intervertebral disc degeneration, lumbar region (2) Bilateral sacroiliitis: Status: Acute Category: Medical Code(s): M46.1 - Sacroiliitis, not elsewhere classified (3) Greater trochanteric bursitis of both hips: Status: Acute Category: Medical Code(s): M70.61 - Trochanteric bursitis, right hip; M70.62 - Trochanteric bursitis, left hip Plan Patient is experiencing significant pain throughout her low back and hips with right groin pain. Patient did have point tenderness along her bilateral SIs with more extreme tenderness on the right side as well as a positive Gisela's, Hiro's, Gaenslen's, compression and distraction exam. I have discussed with patient that she may benefit from bilateral SI injections. Risk and benefits were discussed with patient and she would like to proceed forward with this plan of care. Patient has tried and failed conservative therapy as well as continued at home stretching exercise for longer than 12 weeks that was physician guided from her physical therapist. Patient does also appear to have some bursitis still present and we will follow-up with this at future visits. Patient will be scheduled for bilateral SI injections under fluoroscopy. I will also order the patient a compounded cream. Patient has been instructed to contact the clinic with any concerns before the next appointment. Dr. Prince has reviewed this note and agrees with this plan of care. This note was dictated using voice recognition software and make contain errors or omissions. All injections are used with Lidocaine or Bupivacaine and Depo Medrol.
== END 2024-06-11 23:59 | disposition home or self-care (01) ==
LOC: SC.PAIN 09:07
PROVIDERS: PCP Internal Medicine; Visit Provider Nurse Practitioner Family
DX: M51.36 Other intervertebral disc degeneration, lumbar region (principal); M46.1 Sacroiliitis, not elsewhere classified; M70.61 Trochanteric bursitis, right hip; M70.62 Trochanteric bursitis, left hip; Z73.89 Other problems related to life management difficulty
CPT/HCPCS: 99202; G0463

== ENCOUNTER 2024-06-23 11:59 | Day surgery (SDC) | payer OTHER, SELFPAY ==
[2024-06-23 12:04] VITALS: BP 114/76; PULSE 61; RESP 16; TEMP 36.4; O2SAT 100; BMI 26.6
[2024-06-23] MEDS: LIDOCAINE 1% 5ML PF VIAL 5 ML (12:12)
[2024-06-23] MEDS: BUPIVACAINE 0.25% 10ML INJ 25 MG IJ (12:12)
[2024-06-23 12:13] VITALS: BP 130/65; PULSE 65; RESP 18; O2SAT 98
[2024-06-23 12:14] VITALS: BP 111/76; BP 130/65; PULSE 62; PULSE 65; RESP 18; O2SAT 100; O2SAT 98
--- NOTE | 2024-06-23 12:22 | P.PCN_ITS ---
Procedure Date: 06/23/24 Time: 12:20 Anesthesiologist:: Misael Monsivais CRNA Complications:: None Pre-procedure Diagnosis:: Bilateral sacroiliitis Post-procedure Diagnosis:: Same Indications for Procedure:: Patient is a pleasant 53-year-old female comes to clinic today for bilateral sacroiliac joint injections of cortisone. Patient describes low back pain is constant, dull, aching. The pain is off midline bilaterally. Patient also reports bilateral hip and leg radicular symptoms at times. Prolonged sitting increases pain. She rates her pain today 6/10. Procedure Details:: Procedure: Bilateral sacroiliac joint injections under fluoroscopy Informed consent was obtained and the risks and benefits of the procedure were explained to the patient.~ The patient was taken to the procedure room and noninvasive monitors were placed including a noninvasive blood pressure cuff and pulse oximeter.~ The patient was placed prone on the procedure table. Both hips were cleansed using Betadine as a cleansing solution. C-arm fluoroscopy was used to view the right sacroiliac joint.~ The skin and subcutaneous tissues were anesthetized using lidocaine 1.5% and a 25-gauge needle.~ After this, a 22-gauge spinal needle was inserted under fluoroscopic guidance into the inferior aspect of the right sacroiliac joint.~ Omnipaque dye was injected and good spread was seen throughout the joint.~ After this, approximately 5 mL of bupivacaine, 0.25% and Depo-Medrol, 40 mg was incrementally injected into the right sacroiliac joint. We then moved to the left sacroiliac joint.~ The skin and subcutaneous tissues were anesthetized using lidocaine 1.5% and a 25-gauge needle.~ After this, a 22- gauge spinal needle was inserted under fluoroscopic guidance into the inferior aspect of the left sacroiliac joint.~ Omnipaque dye was injected and good spread was seen throughout the joint. After this, approximately 5 mL of bupivacaine, 0.25% and Depo-Medrol, 40 mg was incrementally injected into the left sacroiliac joint.~ The patient tolerated the procedure well with no complications. The patient was observed in the Pain Clinic and then was discharged home neurologically intact. Plan and Disposition:: Patient was discharged without incident.
== END 2024-06-23 12:14 | disposition home or self-care (01) ==
PROVIDERS: PCP Internal Medicine; Visit Provider Nurse Anesthetist, Certified Registered
DX: M46.1 Sacroiliitis, not elsewhere classified (principal)
CPT/HCPCS: 27096; G0260; J1010

== ENCOUNTER 2024-06-23 14:36 | Outpatient (CLI) | payer OTHER, SELFPAY ==
--- NOTE | 2024-06-23 14:36 | CA_ITS ---
APPROVED REPORT EXAM: Comprehensive 2D, Doppler, and color-flow Echocardiogram Machine Assembler: Liliana Ugalde RT(R) Ht: 5 ft 6 in Wt: 165lbs BSA: 1.84 BP: 122/84 mmHg Indications: palpitations, htn, hyperlipidemia, sob 2D Dimensions Left Atrium 2.55 cm F: 2.7 - 3.8 LVEF (Griffin's) 54.40 % F: 54 - 74 LVOT 1.90 cm (M/F) 1.5-2.5 LV Volume 74.80 mL F: 46 - 106 LV Volume Index 40.7 mL/m2 F: 29 - 61 LA Volume 25.40 mL LA Volume Index 13.80 mL/m2 (M/F) 16-34 EF AP4 55.30 % EF AP2 45.8 % EF BP 54.4 % GL Strain -18.9 % M-Mode Dimensions RVDd 1.82 cm (0.9-2.6) LVDd 4.01 cm (3.5-5.7) Ao Diam 2.73 cm (2.0-3.7) LVDs 2.68 cm (3.5-5.7) IVSd 0.79 cm (0.6-1.1) PWd 0.75 cm (0.6-1.1) EF (Teich) 62.40% FS 33.20% EDV (Teich) 70.40 mL ESV (Teich) 26.50 mL LV Diastology E Decel Time 150 (160-240 msec) E/A Ratio 1.3 MED E' 8.0 (>= 7 cm/sec) E'/MED E' Ratio 8.90 (<= 14) LAT E' 9.1 (>= 10 cm/sec) E/LAT E' Ratio 7.82 (<= 14) Mitral Valve MV E Max Dario. 71.0 (40-130 cm/s) MV A Velocity 53.0 (40-130 cm/s) E/A Ratio 1.34 MV Decel. Time 150 (160-240 ms) Left Ventricle The left ventricle is normal size. The left ventricular systolic function is normal. The left ventricular ejection fraction is within the normal range. There is normal left ventricular wall thickness. There is normal LV segmental wall motion. The left ventricular diastolic function is normal. LVEF is 55%. Right Ventricle The right ventricle is normal size. The right ventricular systolic function is normal. Atria The left atrium size is normal. The right atrium size is normal. There is no Doppler evidence of interatrial shunt. Aortic Valve The aortic valve opens well. There is no aortic valvular stenosis. Trace aortic regurgitation is present. Mitral Valve The mitral valve is normal in structure. No evidence of mitral valve stenosis. Trace mitral regurgitation. Tricuspid Valve The tricuspid valve leaflets are thin and pliable. Trace tricuspid regurgitation. There is insufficient TR jet to estimate RVSP. Pulmonic Valve The pulmonary valve is normal in structure. Trace pulmonic regurgitation. Great Vessels The aortic root is normal in size. The ascending aorta is normal in size. IVC is normal in size and collapses >50% with inspiration. Pericardium There is no pericardial effusion. Other Information Study Quality: Adequate Conclusion Normal biventricular systolic function. No significant valvular stenosis or regurgitation. Electronically signed by : Yenni Pryor MD 06/28/2024 17:28:02
== END 2024-06-23 23:59 | disposition home or self-care (01) ==
LOC: RT 14:36
PROVIDERS: PCP Internal Medicine; Visit Provider Internal Medicine
DX: R00.2 Palpitations (principal); R55 Syncope and collapse
CPT/HCPCS: 93306

== ENCOUNTER 2024-08-15 13:24 | Emergency (ER) | payer OTHER, SELFPAY ==
[2024-08-15 14:17] VITALS: BP 142/84; PULSE 83; RESP 16; TEMP 36.6; O2SAT 100; BMI 27.4
--- NOTE | 2024-08-15 15:06 | EXP.UTC ---
Discharge Plan Disposition Patient Disposition: Home, Self-Care Condition: Good Prescriptions Prescriptions: No Action cyclobenzaprine 5 mg tablet 5 mg PO DAILY PRN (Reason: .) Patient Comments: TAKE ONE TABLET BY MOUTH THREE TIMES DAILY NEEDED FOR SPASMS FOR 10 DAYS estradiol 2 mg tablet 2 mg PO DAILY Qty: 90 4RF bupropion HCl 300 mg tablet extended release 24 hr See Rx Instructions .ROUTE .COMPLEX Qty: 30 11RF Dose Instruction: TAKE ONE TABLET BY MOUTH EVERY MORNING FOR ANXIETY Rx Instructions: TAKE ONE TABLET BY MOUTH EVERY MORNING FOR ANXIETY propranolol 80 mg capsule,extended release 24 hr 80 mg PO DAILY Qty: 90 1RF Referrals Follow up/Referrals: Jeromy Abraham MD [Primary Care Provider] - See instructions Clinical Impressions Clinical Impression: Acute frontal sinusitis, unspecified Qualifiers: Recurrence: non-recurrent Qualified Code(s): J01.10 - Acute frontal sinusitis, unspecified Instructions Patient Instructions: DI for Sinusitis Print Language Print Language: Luxembourgish Discharge ED Provider: Anju Wong [facility] General Stated complaint: sinus pressure, headache Mode of Arrival: Ambulatory Source of Information: Patient Limitations: No Limitations Time Seen by Provider: 08/15/24 15:06 Description of Symptoms (Recalled from Triage Doc. by RN): Patient reports left sinus pressure, blurred vision for a week. HEENT Symptoms (Recalled from RN notes): Yes Resp Symptoms (Recalled from RN notes): No Skin Symptoms (Recalled from RN notes): No MS Symptoms (Recalled from RN notes): No Functional Status (Recalled from RN notes): wnl History of Present Illness Provider Complaint: Pt reports that she has had so much sinus pressure that she has had to sleep sitting up because the pain was too much when she lays flat. She states that she has had pain across her forehead especially on the left side and pressure across her face and in her teeth. She states that she uses flonase and has taken sinus medication but this has not helped. She reports clear sinus drainage. Related Data Home Medications ?Medication ?Instructions ?Recorded ?Confirmed cyclobenzaprine 5 mg tablet 5 mg PO DAILY PRN . 06/17/24 06/23/24 Previous Rx's ?Medication ?Instructions ?Recorded estradiol 2 mg tablet 2 mg PO DAILY #90 tabs 09/10/23 bupropion HCl 300 mg 24 hr tablet, See Rx Instructions .Route 03/23/24 extended release .COMPLEX #30 tabs propranolol 80 mg capsule,24 80 mg PO DAILY To prevent migraine 05/25/24 hr,extended release headaches #90 caps Allergies Allergy/AdvReac Type Severity Reaction Status Date / Time propoxyphene Allergy Unknown CHEST Verified 06/23/24 12:05 [From DARVOCET-N] PRESSURE codeine AdvReac Mild NA-NAUSEA/V Verified 06/23/24 12:05 OMITING Worker's Comp Is this a Worker's Comp case?: [facility] Disclaimer: The information contained in this section may have been updated after the patient was seen, as this information can be updated by other users. Medical History (Updated 08/15/24 @ 15:19 by Anju Wong APRN) Family history of heart disease delivery delivered Dizziness Edema Palpitations Dyspnea Chest pain Surgical History History of tonsillectomy and adenoidectomy History of cholecystectomy H/O: hysterectomy Family History Other No significant family history Social History Smoking Status: Never smoker alcohol intake: current alcohol intake frequency: holidays/special occasions only substance use type: denies use current occupational status: employed Travel in the last 8 weeks: None household members: spouse housing: house current occupation: [employer] caffeine: Yes ROS Obtained: Yes All systems reviewed & no additional complaints except as documented Constitutional Constitutional: Reports system reviewed and no additional complaints, except as documented and Reports headache(s) Eyes Eyes: Reports system reviewed and no additional complaints, except as documented and Reports blurry vision ENT Ears, Nose, Mouth, and Throat: Reports system reviewed and no additional complaints, except as documented, Reports dental pain, Reports headache(s), Reports sinus pain and Reports sinus pressure Cardiovascular Cardiovascular: Reports system reviewed and no additional complaints, except as documented Respiratory Respiratory: Reports system reviewed and no additional complaints, except as documented Gastrointestinal Gastrointestingal: Reports system reviewed and no additional complaints, except as documented Genitourinary Female Genitourinary: Reports system reviewed and no additional complaints, except as documented Musculoskeletal Musculoskeletal: Reports system reviewed and no additional complaints, except as documented Integumentary/Breasts Skin/Breast: Reports system reviewed and no additional complaints, except as documented Neurologic Neurologic: Reports system reviewed and no additional complaints, except as documented and Reports headache(s) Endocrine Endocrine: Reports system reviewed and no additional complaints, except as documented Hematologic/Lymphatic Henatologic/Lymphatic: Reports system reviewed and no additional complaints, except as documented Allergic/Immunologic Allergic/Immunologic: Reports system reviewed and no additional complaints, except as documented Physical Exam General General appearance: alert and in no apparent distress Head Head exam: atraumatic and normocephalic Eye Eye exam: Present conjunctival redness (left eye red. Pt states that she has been rubbing the eye.) ENT ENT exam: Present mucous membranes moist Expanded ENT Exam External ear exam: Present normal external inspection Nose exam: Present sinus tenderness (frontal and maxillary) Nasal speculum exam: Bilateral: normal Mouth exam: Present normal external inspection Teeth exam: Present normal inspection Throat exam: Present normal inspection Neck Neck exam: Present normal inspection; Absent lymphadenopathy Chest Chest inspection: Present normal inspection and symmetric chest wall rise Respiratory Respiratory exam: Present normal lung sounds bilaterally Cardiovascular Cardiovascular exam: Present regular rate, normal rhythm and normal heart sounds Abdominal Exam Abdominal exam: Present soft and normal bowel sounds Extremities Exam Extremities exam: Present normal inspection Back Exam Back exam: Present normal inspection Neurological Exam Neurological exam: Present alert and oriented X3 Psychiatric Psychiatric exam: Present normal affect and normal mood Skin Skin exam: Present warm, dry and intact Lymphatic Lymphatic Findings: no adenopathy Medical Decision Making Medical Records Screening: Per USPSTF and CDC recommendations, given the prevalence of disease in our region, it is our hospital?s policy to screen for HIV and viral Hepatitis for all patients aged 18 and over and those with ongoing risk factors. Loy Inquiry Pt receiving controlled substance: No Loy was queried for this patient: No Vital Signs: 08/15/24 14:17 Temperature 97.9 F Temperature Source Oral Pulse Rate [Radial] 83 Respiratory Rate 16 Blood Pressure [Right Arm] 142/84 H Blood Pressure Mean [Right Arm] 103 Blood Pressure Source [Right Arm] Automatic Cuff Blood Pressure Position [Right Arm] Sitting 02 Sat by Pulse Oximetry 100 Oxygen Delivery Method Room Air
[2024-08-15] MEDS: DEXAMETHASONE 4MG/ML 1ML VIAL 4 MG IM (15:19)
[2024-08-15 15:45] VITALS: BP 142/84; PULSE 83; RESP 16; TEMP 36.6; O2SAT 100
== END 2024-08-15 15:46 | disposition home or self-care (01) ==
PROVIDERS: Emergency Provider Nurse Practitioner Family; PCP Internal Medicine
DX: J01.10 Acute frontal sinusitis, unspecified (principal); R51.9 Headache, unspecified
CPT/HCPCS: 96372; 99204; 99212; G0463; J1100

== ENCOUNTER 2024-08-20 10:35 | Outpatient (CLI) | payer OTHER, SELFPAY ==
[2024-08-20 11:00] LABS: Basophils % 0.7 % (0.1-2.0); Eosinophils # 0.3 K/mm3 (0.0-0.4); Eosinophils % 4.4 % (0.1-12.0); Hematocrit 40.5 % (37.0-47.0); Hemoglobin 13.5 g/dL (12.2-16.2); Lymphocytes # 1.7 K/mm3 (0.7-4.5); Mean Corpuscular HGB Conc 33.3 g/dL (31.8-35.4); Mean Platelet Volume 7.1 fl (7.4-10.4); Monocytes # 0.3 K/mm3 (0.1-1.0); Monocytes % 5.3 % (1.7-9.3); Neutrophils # 3.5 K/mm3 (1.8-7.8); Neutrophils % 60.6 % (37.0-80.0); Platelet Count 341 K/mm3 (142-424); Red Blood Count 4.09 M/mm3 (4.20-5.40); Red Cell Distribution Width 14.2 % (11.5-17.5); White Blood Count 5.7 K/mm3 (4.8-10.8)
[2024-08-20 11:07] LABS: Hemoglobin A1C 4.7 % (4.0-6.0)
[2024-08-20 11:15] LABS: Albumin Level 4.3 g/dl (3.5-5.0); Chloride 101 mmol/L (98-107); Sodium 137 mmol/L (136-145)
[2024-08-20 11:16] LABS: Potassium 3.8 mmoL/L (3.5-5.1)
[2024-08-20 11:18] LABS: Alanine Aminotransferase 28 U/L (12-78); Albumin/Globulin Ratio 1.8 (1.1-1.8); Alkaline Phosphatase 51 U/L (38-126); Anion Gap 11.8 mEq/L (5-15); Aspartate Amino Transferase 24 U/L (14-36); Bilirubin,Total 0.6 mg/dl (0.2-1.3); Blood Urea Nitrogen 9 mg/dl (7-17); Carbon Dioxide 28 mmol/L (22.0-30.0); Estimated Glomerular Filt Rate 88 ml/min (>60); GFR (African American) 106 ML/MIN (>60); Globulin 2.4 g/dL (1.3-3.2); Total Protein,Serum 6.7 g/dl (6.3-8.2)
[2024-08-20 11:19] LABS: Calcium 9.2 mg/dl (8.4-10.2); Chol/HDL Ratio 4.3 (1-3.5); Cholesterol 200 mg/dl (140-200); Glucose 110 mg/dl (74-100); HDL Cholesterol 46 mg/dl (40-60); Triglycerides 272 mg/dl (30-150); VLDL Cholesterol 54 mg/dL (0-40)
[2024-08-20 11:30] LABS: Direct LDL Cholesterol 110.45 mg/dL (100-129)
[2024-08-20 11:35] LABS: Free T4 (Free Thyroxine) 1.09 ng/dl (0.78-2.19)
[2024-08-20 11:49] LABS: Thyroid Stimulating Hormone 1.18 uIU/mL (0.465-4.68)
== END 2024-08-20 23:59 | disposition home or self-care (01) ==
LOC: LAB 10:36
PROVIDERS: PCP Internal Medicine; Visit Provider Internal Medicine
DX: R00.2 Palpitations (principal); R53.83 Other fatigue; R73.02 Impaired glucose tolerance (oral); R55 Syncope and collapse; E78.5 Hyperlipidemia, unspecified
CPT/HCPCS: 36415; 80050; 80053; 80061; 83036; 84439; 84443; 85025

== ENCOUNTER 2024-10-01 13:24 | Outpatient (POV) | payer OTHER, SELFPAY ==
--- NOTE | 2024-10-01 14:21 | EXP.PAIN.SOA ---
[facility] Disclaimer: The information contained in this section may have been updated after the patient was seen, as this information can be updated by other users. Medical History (Updated 08/15/24 @ 15:19 by Anju Wong APRN) Family history of heart disease delivery delivered Dizziness Edema Palpitations Dyspnea Chest pain Surgical History History of tonsillectomy and adenoidectomy History of cholecystectomy H/O: hysterectomy Family History Other No significant family history Social History Smoking Status: Never smoker alcohol intake: current alcohol intake frequency: holidays/special occasions only substance use type: denies use current occupational status: employed Travel in the last 8 weeks: None household members: spouse housing: house current occupation: [employer] caffeine: Yes PM Subjective & Objective Subjective Subjective:: Patient is a pleasant 54-year-old female who presents today for worsening pain. Today she rates her pain a 6 out of 10. Patient denies any new trauma or injury. She does state that she is starting to have increased low back pain that does go into her bilateral hips and a little bit into her right upper thigh. Patient did previously have bilateral SI injections back on June 23 that did provide 80% relief and has lasted up until the last 3 weeks. Patient states that they did change their office location and that they are now on the second floor and so she has been having to go up and down stairs. She describes the pain as an aching, throbbing sensation that is worse with prolonged positioning such as sitting or standing. She does state that the stairs are aggravating her symptoms. Patient states it is interfering with her ability perform activities of daily living such as cooking and cleaning. She states she would like to see about repeat injections. Patient has tried and failed conservative therapy including continued at home stretching exercise for longer than 12 weeks. Her Loy has been reviewed and is appropriate. Review of Systems: General: No recent weight changes, no fever, no sleep disturbances Respiratory: No cough, no shortness of air, no recurring pulmonary infections Cardiovascular/peripheral vascular: No chest pain, no palpitations, no edema, no shortness of breath Gastrointestinal: No new onset incontinence, normal bowel movements reported Genitourinary: No new onset incontinence Musculoskeletal: Low back pain, bilateral hip pain Psychiatric: [Normal mood/affect] Neurological: [Denies weakness in extremities], [denies balance issues] Pain at rest (0-10 scale): 6 Objective Objective:: Physical Exam: General: Alert and oriented x3, no acute distress, pleasant and cooperative Lungs: Respirations even and unlabored, symmetrical chest expansion Eyes: PERRL Musculoskeletal: Flexion and extension of lumbar [spine] somewhat guarded secondary to pain, [antalgic gait noted] point tenderness along bilateral SIs with positive bilateral Gisela's, Hiro's, Gaenslen's, compression and distraction exam Neurological: Speech clear, no gross sensory deficit Has patient had previous pain injection?: Yes Percent improvement in pain since last injection: 80% Conservative treatment options previously tried: Home exercise plan Length of treatment: Longer than 12 weeks Meds Home Medications and Allergies Home Medications ?Medication ?Instructions ?Recorded ?Confirmed ?Type bupropion HCl 300 mg 24 hr tablet, See Rx Instructions .Route 03/23/24 06/23/24 Rx extended release .COMPLEX #30 tabs propranolol 80 mg capsule,24 80 mg PO DAILY To prevent migraine 05/25/24 06/23/24 Rx hr,extended release headaches #90 caps cyclobenzaprine 5 mg tablet 5 mg PO DAILY PRN . 06/17/24 06/23/24 History estradiol 2 mg tablet See Rx Instructions .Route 09/10/24 Rx .COMPLEX #90 tabs New Prescriptions to Start Prescriptions: Allergies Allergy/AdvReac Type Severity Reaction Status Date / Time propoxyphene (From Allergy Unknown CHEST Verified 06/23/24 12:05 DARVOCET-N) PRESSURE codeine AdvReac Mild NA-NAUSEA/V Verified 06/23/24 12:05 OMITING Assessment and Plan *Assessment and plan (1) Bilateral sacroiliitis: Status: Acute Category: Medical Code(s): M46.1 - Sacroiliitis, not elsewhere classified (2) Hip pain, bilateral: Status: Acute Category: Medical Code(s): M25.551 - Pain in right hip; M25.552 - Pain in left hip Plan Patient is experiencing worsening pain in her low back and hips with limited range of motion. Patient did have point tenderness along her bilateral SIs and a positive bilateral Gisela's, Hiro's, Gaenslen's, compression and distraction exam. Patient did previously have bilateral SI injections at the beginning of June that did provide more than 80% relief and lasted up until the last 3 weeks. Patient has continued conservative treatment such as oral medications, heat and ice, topicals, at home exercising and stretching for longer than 12 weeks. I did review over with the patient that I do believe she would benefit from a repeat SI injection bilaterally. Risk and benefits were discussed with the patient and she would like to proceed forward with this plan of care. We will schedule the patient for bilateral SI injections under fluoroscopy. This pain has been going on for longer than 3 months and did have significant relief with her last set of SI injections of more than 80%. Patient has been instructed to contact the clinic with any concerns before the next appointment. Dr. Prince has reviewed this note and agrees with this plan of care. This note was dictated using voice recognition software and make contain errors or omissions. All injections are used with Lidocaine or Bupivacaine and Depo Medrol.
[2024-10-01 14:48] VITALS: BP 117/72; PULSE 65; RESP 14; O2SAT 100; BMI 27.4
== END 2024-10-01 23:59 | disposition home or self-care (01) ==
LOC: SC.PAIN 13:25
PROVIDERS: PCP Internal Medicine; Visit Provider Nurse Practitioner Family
DX: M46.1 Sacroiliitis, not elsewhere classified (principal); M25.551 Pain in right hip; M25.552 Pain in left hip; Z73.89 Other problems related to life management difficulty
CPT/HCPCS: 99212; G0463

== ENCOUNTER 2024-11-03 09:46 | Day surgery (SDC) | payer OTHER, SELFPAY ==
[2024-11-03 10:21] VITALS: BP 116/80; PULSE 62; RESP 16; TEMP 36.8; O2SAT 97; BMI 26.6
[2024-11-03] MEDS: BUPIVACAINE 0.25% 10ML INJ 25 MG IJ (10:23)
[2024-11-03 10:24] VITALS: BP 127/49; PULSE 69; RESP 18; O2SAT 100
[2024-11-03] MEDS: methylPREDNISolone ACETATE 80MG/ML VIAL 80 MG (10:24)
[2024-11-03] MEDS: LIDOCAINE 1% 5ML PF VIAL 5 ML (10:24)
[2024-11-03 10:29] VITALS: BP 127/49; PULSE 69; RESP 18; O2SAT 100
[2024-11-03 10:32] VITALS: BP 117/73; PULSE 67; RESP 16; O2SAT 98
--- NOTE | 2024-11-03 11:47 | P.PCN_ITS ---
Procedure Date: 11/03/24 Time: 11:00 Anesthesiologist:: Misael Monsivais CRNA Complications:: None Pre-procedure Diagnosis:: Bilateral sacroiliitis Post-procedure Diagnosis:: Same. Indications for Procedure:: Patient is a very pleasant 54-year-old female who comes our clinic today for bilateral sacroiliac joint injections of cortisone and local anesthetic. She describes low lumbar back pain off the midline bilaterally. Bilateral posterior hip pain. Difficulty transitioning from sitting to standing. Difficulty with ambulation. Difficulty with sitting for any length of time. She rates her pain 8/10. Procedure Details:: Procedure: Bilateral sacroiliac joint injections under fluoroscopy Informed consent was obtained and the risks and benefits of the procedure were explained to the patient.~ The patient was taken to the procedure room and noninvasive monitors were placed including a noninvasive blood pressure cuff and pulse oximeter.~ The patient was placed prone on the procedure table. Both hips were cleansed using Betadine as a cleansing solution. C-arm fluoroscopy was used to view the right sacroiliac joint.~ The skin and subcutaneous tissues were anesthetized using lidocaine 1.5% and a 25-gauge needle.~ After this, a 22-gauge spinal needle was inserted under fluoroscopic guidance into the inferior aspect of the right sacroiliac joint.~ Omnipaque dye was injected and good spread was seen throughout the joint.~ After this, approximately 5 mL of bupivacaine, 0.25% and Depo-Medrol, 40 mg was incrementally injected into the right sacroiliac joint. We then moved to the left sacroiliac joint.~ The skin and subcutaneous tissues were anesthetized using lidocaine 1.5% and a 25-gauge needle.~ After this, a 22- gauge spinal needle was inserted under fluoroscopic guidance into the inferior aspect of the left sacroiliac joint.~ Omnipaque dye was injected and good spread was seen throughout the joint. After this, approximately 5 mL of bupivacaine, 0.25% and Depo-Medrol, 40 mg was incrementally injected into the left sacroiliac joint.~ The patient tolerated the procedure well with no complications. The patient was observed in the Pain Clinic and then was discharged home neurologically intact. Plan and Disposition:: Patient was discharged without incident.
== END 2024-11-03 10:32 | disposition home or self-care (01) ==
LOC: SC.PAINP 09:47
PROVIDERS: PCP Internal Medicine; Visit Provider Nurse Anesthetist, Certified Registered
DX: M46.1 Sacroiliitis, not elsewhere classified (principal)
CPT/HCPCS: 27096; G0260; J1010

== ENCOUNTER 2024-11-25 10:44 | Outpatient (POV) | payer OTHER, SELFPAY ==
--- NOTE | 2024-11-25 10:50 | EXP.PAIN.SOA ---
[facility] Disclaimer: The information contained in this section may have been updated after the patient was seen, as this information can be updated by other users. Medical History Family history of heart disease delivery delivered Dizziness Edema Palpitations Dyspnea Chest pain Surgical History History of tonsillectomy and adenoidectomy History of cholecystectomy H/O: hysterectomy Family History Other No significant family history Social History Smoking Status: Never smoker alcohol intake: current alcohol intake frequency: holidays/special occasions only substance use type: denies use current occupational status: other Travel in the last 8 weeks: None household members: spouse housing: house current occupation: [employer] caffeine: Yes Have you lived/traveled outside US in past 30 days?: No Contact w/someone who lives/traveled outside US past 30 days?: No Exposure to someone with infectious disease in past 14 days?: No Do you have a fever (greater than 100.4 F or 38 C)?: No Have you tested positive for COVID-19: No Exposed to someone with COVID-19 in past 14 days?: No Do you have a sore throat?: No Do you have a cough?: No Do you have any weakness?: No Do you have any diarrhea?: No Are you experiencing any unusual bleeding?: No Do you have any muscle aches/pain?: No Do you have any abdominal pain?: No Are you experiencing loss of taste or smell?: No PM Subjective & Objective Subjective Subjective:: Patient is a pleasant 54-year-old female who presents today for follow-up of bilateral SI injections on 11/03/2024. Today she rates her pain a 2 out of 10. She denies any new trauma or injury. She does state that she had at least 80% improvement following these injection and feels like it is still helping. Patient has had decreased pain with overall improved function. She is prescribed compounded cream and states it really does help additionally. Her Loy has been reviewed and is appropriate. Review of Systems: General: No recent weight changes, no fever, no sleep disturbances Respiratory: No cough, no shortness of air, no recurring pulmonary infections Cardiovascular/peripheral vascular: No chest pain, no palpitations, no edema, no shortness of breath Gastrointestinal: No new onset incontinence, normal bowel movements reported Genitourinary: No new onset incontinence Musculoskeletal: Low back pain Psychiatric: [Normal mood/affect] Neurological: [Denies weakness in extremities], [denies balance issues] Pain at rest (0-10 scale): 2 Objective Objective:: Physical Exam: General: Alert and oriented x3, no acute distress, pleasant and cooperative Lungs: Respirations even and unlabored, symmetrical chest expansion Eyes: PERRL Musculoskeletal: Flexion and extension of lumbar spine within normal limits Neurological: Speech clear, no gross sensory deficit Has patient had previous pain injection?: Yes Percent improvement in pain since last injection: 80% Conservative treatment options previously tried: Home exercise plan Length of treatment: Longer than 12 weeks Meds Home Medications and Allergies Home Medications ?Medication ?Instructions ?Recorded ?Confirmed ?Type bupropion HCl 300 mg 24 hr tablet, See Rx Instructions .Route 03/23/24 11/03/24 Rx extended release .COMPLEX #30 tabs propranolol 80 mg capsule,24 80 mg PO DAILY To prevent migraine 05/25/24 11/03/24 Rx hr,extended release headaches #90 caps cyclobenzaprine 5 mg tablet 5 mg PO DAILY PRN . 06/17/24 11/03/24 History estradiol 2 mg tablet See Rx Instructions .Route 09/10/24 11/03/24 Rx .COMPLEX #90 tabs New Prescriptions to Start Prescriptions: Allergies Allergy/AdvReac Type Severity Reaction Status Date / Time propoxyphene (From Allergy Unknown CHEST Verified 06/23/24 12:05 DARVOCET-N) PRESSURE codeine AdvReac Mild NA-NAUSEA/V Verified 06/23/24 12:05 OMITING Assessment and Plan *Assessment and plan (1) Bilateral sacroiliitis: Status: Acute Category: Medical Code(s): M46.1 - Sacroiliitis, not elsewhere classified (2) Degenerative disc disease, lumbar: Status: Acute Category: Medical Code(s): M51.369 - Other intervertebral disc degeneration, lumbar region without mention of lumbar back pain or lower extremity pain Plan Patient has had significant improvement following her repeat SI injections and does not require any additional injection therapy at this time. Patient will return to clinic in 6 weeks for reevaluation of symptoms and plan of care. Patient has been instructed to contact the clinic with any concerns before the next appointment. Dr. Prince has reviewed this note and agrees with this plan of care. This note was dictated using voice recognition software and make contain errors or omissions. All injections are used with Lidocaine, Bupivacaine and Depo Medrol. Occasionally urine drug screen is needed to verify patient's compliance with our office pain contract. This is ordered based off specific treatments related to chronic pain with the potential to abuse certain medications.
[2024-11-25 11:24] VITALS: BP 139/79; PULSE 73; RESP 18; O2SAT 100; BMI 26.6
== END 2024-11-25 23:59 | disposition home or self-care (01) ==
LOC: SC.PAIN 10:44
PROVIDERS: PCP Internal Medicine; Visit Provider Nurse Practitioner Family
DX: M46.1 Sacroiliitis, not elsewhere classified (principal); M51.369 Other intervertebral disc degeneration, lumbar region without mention of lumbar back pain or lower extremity pain
CPT/HCPCS: 99212; G0463

== ENCOUNTER 2024-12-11 07:50 | Outpatient (CLI) | payer OTHER, SELFPAY ==
--- NOTE | 2024-12-11 07:51 | MM_ITS ---
PROCEDURE INFORMATION: Exam: MG Bilateral Screening 3D Mammography Exam date and time: 12/11/2024 7:43 AM Age: 54 years old Clinical indication: Screening. Mother had breast at cancer age 42, maternal aunt, maternal cousin and paternal aunt had breast cancer. TECHNIQUE: Imaging protocol: Bilateral Screening tomosynthesis and 2D mammography including computer-aided detection (CAD) when performed. COMPARISON: 1. MG MM DIG SCREENING MAMM BI W/CAD 10/09/2023 1:07 PM 2. MG MM DIG SCREENING MAMM BI W/CAD 09/12/2022 3:45 PM 3. MG MM DIG SCREENING MAMM BI W/CAD 02/22/2021 8:50 AM 4. MG MM DIG SCREENING MAMM BI W/CAD 02/08/2020 9:46 AM FINDINGS: MAMMOGRAPHY: Breast composition: The breasts are heterogeneously dense, which may obscure small masses. Mass: None. Architectural distortion: None. Calcifications: No suspicious calcifications. Asymmetric density: None. Skin thickening: None. Axillary adenopathy: None. IMPRESSION: No mammographic evidence of malignancy. Annual screening is recommended unless otherwise clinically indicated. Given the reported risk factors coupled with the patient's breast density, a breast cancer risk assessment may prove useful for further evaluation. ASSESSMENT: BI-RADS Category 1: Negative.
== END 2024-12-11 23:59 | disposition home or self-care (01) ==
LOC: RAD 07:51
PROVIDERS: PCP Internal Medicine; Visit Provider Nurse Practitioner Obstetrics & Gynecology
DX: Z12.31 Encounter for screening mammogram for malignant neoplasm of breast (principal)
CPT/HCPCS: 77063; 77067

== ENCOUNTER 2025-01-04 09:50 | Outpatient (POV) | payer OTHER, SELFPAY ==
--- NOTE | 2025-01-04 09:54 | A.OFFVIS_ITS ---
[facility] Disclaimer: The information contained in this section may have been updated after the patient was seen, as this information can be updated by other users. Medical History Family history of heart disease delivery delivered Dizziness Edema Palpitations Dyspnea Chest pain Surgical History History of tonsillectomy and adenoidectomy History of cholecystectomy H/O: hysterectomy Family History Other No significant family history Social History Smoking Status: Never smoker alcohol intake: current alcohol intake frequency: holidays/special occasions only substance use type: denies use current occupational status: other Travel in the last 8 weeks: None household members: spouse housing: house current occupation: [employer] caffeine: Yes PM Subjective & Objective Subjective Subjective:: Patient is a pleasant 54-year-old female who presents today for 6-week follow- up. Today she rates her pain a 5 out of 10. Patient denies any new trauma or injury. Patient did previously have bilateral SI injections in October that did provide 80% improvements and had still been working well. She states that she is starting to notice an increase in pain all across her low back and hips as well as going into her groins. Patient does state the pain is worse with prolonged positioning. 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 She states with the weather being as it has with snow and ice she is not getting up and moving around like what she generally would be and feel like this is played a role as well. Patient does state the pain is starting to interfere with her ability perform activities of daily living such as cooking and cleaning. Patient does state that she has been using Tylenol and ibuprofen. Patient is prescribed compounded cream. Her Loy has been reviewed and is appropriate. Review of Systems: General: No recent weight changes, no fever, no sleep disturbances Respiratory: No cough, no shortness of air, no recurring pulmonary infections Cardiovascular/peripheral vascular: No chest pain, no palpitations, no edema, no shortness of breath Gastrointestinal: No new onset incontinence, normal bowel movements reported Genitourinary: No new onset incontinence Musculoskeletal: Low back pain, bilateral hip pain psychiatric: [Normal mood/affect] Neurological: [Denies weakness in extremities], [denies balance issues] Pain at rest (0-10 scale): 5 Objective Objective:: Physical Exam: General: Alert and oriented x3, no acute distress, pleasant and cooperative Lungs: Respirations even and unlabored, symmetrical chest expansion Eyes: PERRL Musculoskeletal: Flexion and extension of lumbar [spine] somewhat guarded secondary to pain, [antalgic gait noted] point tenderness along bilateral SIs with positive bilateral Gisela's, Hiro's, Gaenslen's, compression and distraction exam Neurological: Speech clear, no gross sensory deficit Has patient had previous pain injection?: No Conservative treatment options previously tried: Home exercise plan Length of treatment: Longer than 12 weeks Meds Home Medications and Allergies Home Medications ?Medication ?Instructions ?Recorded ?Confirmed ?Type bupropion HCl 300 mg 24 hr tablet, See Rx Instructions .Route 03/23/24 11/25/24 Rx extended release .COMPLEX #30 tabs propranolol 80 mg capsule,24 80 mg PO DAILY To prevent migraine 05/25/24 11/25/24 Rx hr,extended release headaches #90 caps cyclobenzaprine 5 mg tablet 5 mg PO DAILY PRN . 06/17/24 11/25/24 History estradiol 2 mg tablet See Rx Instructions .Route 09/10/24 11/25/24 Rx .COMPLEX #90 tabs New Prescriptions to Start Prescriptions: Allergies Allergy/AdvReac Type Severity Reaction Status Date / Time propoxyphene (From Allergy Unknown CHEST Verified 06/23/24 12:05 DARVOCET-N) PRESSURE codeine AdvReac Mild NA-NAUSEA/V Verified 06/23/24 12:05 OMITING Assessment and Plan *Assessment and plan (1) Bilateral sacroiliitis: Status: Acute Category: Medical Code(s): M46.1 - Sacroiliitis, not elsewhere classified (2) Hip pain, bilateral: Status: Acute Category: Medical Code(s): M25.551 - Pain in right hip; M25.552 - Pain in left hip Plan Patient is experiencing worsening pain along the low back and bilateral hips. They did have limited range of motion of the lumbar spine along with point tenderness along bilateral SI joints and a positive bilateral Gisela's, Hiro's, Gaenslen's, compression and distraction exam. I did discuss with the patient that I do believe they would benefit from bilateral SI injections. Risk and benefits were discussed with the patient and they would like to proceed forward with this option. Patient has tried and failed conservative therapy including continued at home stretching exercise for longer than 12 weeks and between injections. Patient did have a successful bilateral SI injection back in October that did provide 80% improvement and lasted a full 2 months. Patient is just now starting to have worsening issues in the same location. Patient has had ongoing SI related problems for longer than 6 months. Patient will be scheduled for bilateral SI injections under fluoroscopy. Patient has been instructed to contact the clinic with any concerns before the next appointment. Dr. Prince has reviewed this note and agrees with this plan of care. This note was dictated using voice recognition software and make contain errors or omissions. All injections are used with Lidocaine or Bupivacaine and Depo Medrol.
[2025-01-04 10:02] VITALS: BP 128/72; PULSE 88; RESP 14; O2SAT 97; BMI 27.4
== END 2025-01-04 23:59 | disposition home or self-care (01) ==
LOC: SC.PAIN 09:51
PROVIDERS: PCP Internal Medicine; Visit Provider Nurse Practitioner Family
DX: M46.1 Sacroiliitis, not elsewhere classified (principal); M25.551 Pain in right hip; M25.552 Pain in left hip; Z73.89 Other problems related to life management difficulty
CPT/HCPCS: 99212; G0463

== ENCOUNTER 2025-01-26 08:02 | Day surgery (SDC) | payer OTHER, SELFPAY ==
[2025-01-26 08:14] VITALS: BP 119/77; PULSE 92; RESP 16; TEMP 36.8; O2SAT 100; BMI 25.0
[2025-01-26] MEDS: LIDOCAINE 1% 5ML PF VIAL 5 ML (08:37)
[2025-01-26] MEDS: BUPIVACAINE 0.25% 10ML INJ 25 MG IJ (08:37)
[2025-01-26] MEDS: methylPREDNISolone ACETATE 80MG/ML VIAL 80 MG (08:37)
[2025-01-26 08:38] VITALS: BP 134/79; PULSE 81; RESP 18; O2SAT 95
[2025-01-26 08:39] VITALS: BP 134/79; PULSE 81; RESP 18; O2SAT 95
[2025-01-26 08:59] VITALS: BP 126/93; PULSE 86; RESP 16; O2SAT 97
--- NOTE | 2025-01-26 09:05 | P.PCN_ITS ---
Procedure Date: 01/26/25 Time: 08:50 Anesthesiologist:: Misael Monsivais CRNA Complications:: None Pre-procedure Diagnosis:: Bilateral sacroiliitis Post-procedure Diagnosis:: Same Indications for Procedure:: Patient is a very pleasant 54-year-old female comes our clinic today for bilateral sacroiliac joint injections cortisone local anesthetic. Patient describes low lumbar back pain off the midline bilaterally. Bilateral posterior hip pain. Difficulty transitioning from sitting to standing. Difficulty with ambulation. She rates her pain 7/10. Procedure Details:: Procedure: Bilateral sacroiliac joint injections under fluoroscopy Informed consent was obtained and the risks and benefits of the procedure were explained to the patient.~ The patient was taken to the procedure room and noninvasive monitors were placed including a noninvasive blood pressure cuff and pulse oximeter.~ The patient was placed prone on the procedure table. Both hips were cleansed using Betadine as a cleansing solution. C-arm fluoroscopy was used to view the right sacroiliac joint.~ The skin and subcutaneous tissues were anesthetized using lidocaine 1.5% and a 25-gauge needle.~ After this, a 22-gauge spinal needle was inserted under fluoroscopic guidance into the inferior aspect of the right sacroiliac joint.~ Omnipaque dye was injected and good spread was seen throughout the joint.~ After this, approximately 5 mL of bupivacaine, 0.25% and Depo-Medrol, 40 mg was incrementally injected into the right sacroiliac joint. We then moved to the left sacroiliac joint.~ The skin and subcutaneous tissues were anesthetized using lidocaine 1.5% and a 25-gauge needle.~ After this, a 22- gauge spinal needle was inserted under fluoroscopic guidance into the inferior aspect of the left sacroiliac joint.~ Omnipaque dye was injected and good spread was seen throughout the joint. After this, approximately 5 mL of bupivacaine, 0.25% and Depo-Medrol, 40 mg was incrementally injected into the left sacroiliac joint.~ The patient tolerated the procedure well with no complications. The patient was observed in the Pain Clinic and then was discharged home neurologically intact. Plan and Disposition:: Patient was discharged without incident.
== END 2025-01-26 08:59 | disposition home or self-care (01) ==
LOC: SC.PAINP 08:03
PROVIDERS: PCP Internal Medicine; Visit Provider Nurse Anesthetist, Certified Registered
DX: M46.1 Sacroiliitis, not elsewhere classified (principal)
CPT/HCPCS: 27096; G0260; J1010

== ENCOUNTER 2025-02-08 08:35 | Outpatient (POV) | payer OTHER, SELFPAY ==
--- NOTE | 2025-02-08 08:43 | EXP.PAIN.SOA ---
[facility] Disclaimer: The information contained in this section may have been updated after the patient was seen, as this information can be updated by other users. Medical History Family history of heart disease delivery delivered Dizziness Edema Palpitations Dyspnea Chest pain Surgical History History of tonsillectomy and adenoidectomy History of cholecystectomy H/O: hysterectomy Family History Other No significant family history Social History Smoking Status: Never smoker alcohol intake: current alcohol intake frequency: holidays/special occasions only substance use type: denies use current occupational status: other Travel in the last 8 weeks: None household members: spouse housing: house current occupation: [employer] caffeine: Yes PM Subjective & Objective Subjective Subjective:: Patient is a pleasant 54-year-old female who presents today for follow-up of bilateral SI injections on 01/26/2025. Today she rates her pain a 4 out of 10. She states that these injections again did provide significant relief stating at least 80%. Patient states that it did take about a day for it to kick in but it is much more manageable and not as severe. Patient does states she still has 1 spot that causes constant pinching and does believe it is related to her prolonged positioning where she is seated at work. Patient does continue to use her compounded cream and states it helps in addition. Patient does feel like these injections have really made the biggest difference in her hips.Her Loy has been reviewed and is appropriate. Review of Systems: General: No recent weight changes, no fever, no sleep disturbances Respiratory: No cough, no shortness of air, no recurring pulmonary infections Cardiovascular/peripheral vascular: No chest pain, no palpitations, no edema, no shortness of breath Gastrointestinal: No new onset incontinence, normal bowel movements reported Genitourinary: No new onset incontinence Musculoskeletal: Low back pain Psychiatric: [Normal mood/affect] Neurological: [Denies weakness in extremities], [denies balance issues] Pain at rest (0-10 scale): 4 Objective Objective:: Physical Exam: General: Alert and oriented x3, no acute distress, pleasant and cooperative Lungs: Respirations even and unlabored, symmetrical chest expansion Eyes: PERRL Musculoskeletal: Flexion and extension of lumbar [spine] within normal limits Neurological: Speech clear, no gross sensory deficit Has patient had previous pain injection?: Yes Percent improvement in pain since last injection: 80% Conservative treatment options previously tried: Home exercise plan Length of treatment: Longer than 12 weeks Meds Home Medications and Allergies Home Medications ?Medication ?Instructions ?Recorded ?Confirmed ?Type bupropion HCl 300 mg 24 hr tablet, See Rx Instructions .Route 03/23/24 01/26/25 Rx extended release .COMPLEX #30 tabs cyclobenzaprine 5 mg tablet 5 mg PO DAILY PRN . 06/17/24 01/26/25 History estradiol 2 mg tablet See Rx Instructions .Route 09/10/24 01/26/25 Rx .COMPLEX #90 tabs propranolol 80 mg capsule,24 80 mg PO DAILY To prevent migraine 02/05/25 Rx hr,extended release headaches #90 caps New Prescriptions to Start Prescriptions: Allergies Allergy/AdvReac Type Severity Reaction Status Date / Time propoxyphene (From Allergy Unknown CHEST Verified 06/23/24 12:05 DARVOCET-N) PRESSURE codeine AdvReac Mild NA-NAUSEA/V Verified 06/23/24 12:05 OMITING Assessment and Plan *Assessment and plan (1) Bilateral sacroiliitis: Status: Acute Category: Medical Code(s): M46.1 - Sacroiliitis, not elsewhere classified (2) Degenerative disc disease, lumbar: Status: Acute Category: Medical Code(s): M51.369 - Other intervertebral disc degeneration, lumbar region without mention of lumbar back pain or lower extremity pain Plan Patient has had significant relief following her injections and does not require any additional injection therapy at this time. Patient will return to clinic in 6 weeks. Patient has been instructed to contact the clinic with any concerns before the next appointment. Dr. Prince has reviewed this note and agrees with this plan of care. This note was dictated using voice recognition software and make contain errors or omissions. All injections are used with Lidocaine, Bupivacaine and Depo Medrol. Occasionally urine drug screen is needed to verify patient's compliance with our office pain contract. This is ordered based off specific treatments related to chronic pain with the potential to abuse certain medications.
[2025-02-08 08:49] VITALS: BP 109/75; PULSE 83; RESP 14; O2SAT 98; BMI 26.6
== END 2025-02-08 23:59 | disposition home or self-care (01) ==
LOC: SC.PAIN 08:36
PROVIDERS: PCP Internal Medicine; Visit Provider Nurse Practitioner Family
DX: M46.1 Sacroiliitis, not elsewhere classified (principal); M51.369 Other intervertebral disc degeneration, lumbar region without mention of lumbar back pain or lower extremity pain
CPT/HCPCS: 99212; G0463

== ENCOUNTER 2025-03-17 15:59 | Outpatient (CLI) | payer OTHER, SELFPAY ==
--- NOTE | 2025-03-17 16:04 | XR_ITS ---
FINAL REPORT TECHNIQUE: Chest PA & Lateral CLINICAL HISTORY: Right chest pain COMPARISON: None FINDINGS: 2 views of the chest were performed. The heart size is normal. The mediastinum is within normal limits. There is no acute cardiopulmonary process. There are no pleural effusions. There is no pneumothorax. The bony thorax appears intact. IMPRESSION: No acute cardiopulmonary process. Reviewed, Interpreted and Dictated by Pk Rosas MD Transcribed by Karla Rob Authenticated and [facility]
[2025-03-17 16:56] LABS: Alanine Aminotransferase 36 U/L (12-78); Albumin Level 4.4 g/dl (3.5-5.0); Albumin/Globulin Ratio 1.8 (1.1-1.8); Alkaline Phosphatase 70 U/L (38-126); Amylase 56 U/L (30-110); Anion Gap 7.5 mEq/L (5-15); Aspartate Amino Transferase 29 U/L (14-36); Bilirubin,Total 0.7 mg/dl (0.2-1.3); Blood Urea Nitrogen 7 mg/dl (7-17); Calcium 8.6 mg/dl (8.4-10.2); Carbon Dioxide 30 mmol/L (22.0-30.0); Chloride 104 mmol/L (98-107); Cholesterol 167 mg/dl (140-200); Estimated Glomerular Filt Rate 75 ml/min (>60); GFR (African American) 91 ML/MIN (>60); Globulin 2.4 g/dL (1.3-3.2); Glucose 95 mg/dl (74-100); HDL Cholesterol 42 mg/dl (40-60); Potassium 3.5 mmoL/L (3.5-5.1); Sodium 138 mmol/L (136-145); Total Protein,Serum 6.8 g/dl (6.3-8.2); Triglycerides 145 mg/dl (30-150); VLDL Cholesterol 29 mg/dL (0-40)
[2025-03-17 17:00] LABS: D-Dimer 0.36 ug/mL (0.0-0.5)
[2025-03-17 17:04] LABS: Basophils % 0.4 % (0.1-2.0); Eosinophils # 0.2 Kmm3 (0.0-0.4); Eosinophils % 2.8 % (0.1-12.0); Hematocrit 39.1 % (37.0-47.0); Hemoglobin 13.9 g/dL (12.2-16.2); Lymphocytes # 1.5 K/mm3 (0.7-4.5); Lymphocytes % 28.5 % (10-50); Mean Corpuscular HGB Conc 35.5 g/dL (31.8-35.4); Mean Corpuscular Hemoglobin 32.8 pg (27.0-31.2); Mean Corpuscular Volume 92.2 fl (81-99); Mean Platelet Volume 10.2 fl (7.4-10.4); Monocytes # 0.5 K/mm3 (0.1-1.0); Monocytes % 9.9 % (1.7-9.3); Neutrophils # 3.1 K/mm3 (1.8-7.8); Nucleated Red Blood Cells # 0 10^3/uL; Nucleated Red Blood Cells % 0 %; Platelet Count 283 K/mm3 (142-424); Red Blood Count 4.24 M/mm3 (4.20-5.40); Red Cell Distribution Width 12.5 % (11.5-17.5); White Blood Count 5.3 K/mm3 (4.8-10.8)
== END 2025-03-17 23:59 | disposition home or self-care (01) ==
LOC: RAD 16:00
PROVIDERS: PCP Internal Medicine; Visit Provider Internal Medicine
DX: R07.9 Chest pain, unspecified (principal); R10.11 Right upper quadrant pain; R73.02 Impaired glucose tolerance (oral); E78.5 Hyperlipidemia, unspecified
CPT/HCPCS: 36415; 71046; 80053; 80061; 82150; 85025; 85378

== ENCOUNTER 2025-03-19 07:57 | Outpatient (CLI) | payer OTHER, SELFPAY ==
--- OUTSIDE RECORDS SUMMARY | 2025-03-19 07:59 | XMS_ITS | Data Portability ---
Author Organization [facility] Address [address] [place] [address] Assessment No assessment recorded. Plan of Treatment Reminders Order Date Submit Date Provider Last Modified By Organization Details Last Modified Time Details Appointments None record ed. Lab None record ed. Referral None record ed. Procedures None record ed. Surgeries None record ed. Imaging None record ed. Medication Orders None record ed. Patient TargetsNo targets recorded. Patient InstructionsNo instructions recorded. Reason for Referral None Reported. Problems No Known Problems Procedures Surgical History Date Name Laterality Status Provider Name and Address Organization Details Recorded Time 06/17/2023 Orthotic, [facility], Static Custom completed RASHID MARKS JR, OTR/L, CHT [address] [place], [address], [facility] 06/17/2023 09:24:51 Imaging Results None recorded. Procedure Notes None recorded. Medical Equipment None Reported. Allergies Allergen ID Allergen Name Allergen Category Reaction Reaction Severity Criticality Documentation Date Start Date Code Code System Note Provider Name and Address Organization Details Recorded Time 889082 codeine medicatio n vomiting Not available Not available 10/12/20162007 2670 RxNorm React ion: NAUSE A AND VOMIT ING; Comme nt: Creat ed By: Lopez Sales ed Date: 2007 10:57 :32 AM; Not Available [employer] 6 04:32:29 Medications Name Sig Start Date Stop Date Status Note LastModified by Organization Details LastModified Time Tylenol Arthritis Pain 650 mg tablet,ex tended release As Directed 06/17 completed Frequenc y: as direct.; Medicati on Descript ion: acetamin ophen; Route:or al; refills: 0 Not Available Not Available Not Available Mobic 15 mg tablet Daily 06/17 completed Duration : 30 days;Gallo quency: daily;Me dication Descript ion: meloxica m; Dosage:1 ; Route:or al; refills: 3; Quantity :30 tablet Not Available Not Available Not Available amitripty line 10 mg tablet As Directed 06/17 completed Duration : 30 days;Ins truction s: Take 1-2 hours before bedtime; Frequenc y: as direct.; Medicati on Descript ion: amitript yline; Dosage:1 ; Route:or al; refills: 0; Quantity :30 tablet Not Available Not Available Not Available Wellbutri n SR 200 mg tablet, 12 hr sustained -release Daily active Frequenc y: daily;Me dication Descript ion: bupropio n; Dosage:1 ; Route:or al; refills: 5; Quantity :60 tablet, extended release Not Available Not Available Not Available estradiol active Not Available Not Jailene ilable Not Available Voltaren 1 % topical gel Every six to eight hours 06/17 completed Duration : 30 days;Gallo quency: q6-8h;Me dication Descript ion: diclofen ac topical; Dosage:1 ; Route:to pical; refills: 0; Quantity :3 gel Not Available Not Available Not Available Vitals Date Recorded Body height Body mass index (BMI) Body weight Pain severity - 0-10 verbal numeric rating [Score] - Reported Provider Name and Address Organization Details Last Updated DateTime 06/17/2023 165.1 cm 27.5 kg/m2 29747.74 g 3 Tereza Ge [facility] 06/17/2023 08:37:11 Date Recorded Body height Body mass index (BMI) Body weight Pain severity - 0-10 verbal numeric rating [Score] - Reported Provider Name and Address Organization Details Last Updated DateTime 07/15/2023 165.1 cm 27.5 kg/m2 74317.74 g 4 Saige Costa [facility] 07/15/2023 13:46:39 Social History None recorded. Functional Status None recorded. Mental Status None recorded. Family History Nothing Reported. Medical History No medical history recorded. Gynecological HistoryNo gynecological history recorded. Obstetrics History GPAL:G 0 P 0 0 0 0 Past Encounters Encounter ID Performer Location Encounter Start Date Encounter Closed Date Diagnosis/Indication Diagnosis SNOMED-CT Code Diagnosis ICD10 Code Diagnosis Note [id number] KEILY VELASCO MD [facility] [place] [address] [place] [address] 06/17/2023 08:28:32 06/17/2023 08:50:52 Complete tear of ligament of hand 216518758 S63.90XA Left index finger MCP RCL tear, her joint is stable. I believe that her injury may heal with conservati ve management . She will be fitted for a splint today. We discussed surgical interventi on if Sx do not subside with conservati ve management . Follow up in 4 weeks to reassess whether we are heading in the right direction. If no improvemen t she is a candidate for radial collateral ligament repair left index finger [id number] RASHID MARKS JR, OTR/L, CHT PHYSICAL THERAPY / HAND [facility]AP[facility] [place] [address] [place] [address] 06/17/2023 08:58:18 06/18/2023 04:53:03 Complete tear of ligament of hand 943360047 S63.611D [id number] KEILY VELASCO MD [facility] [place] [address] [place] [address] 07/15/2023 13:14:56 07/15/2023 14:35:29 Complete tear of ligament of hand 623788974 S63.90XA Left index finger MCP RCL tear, feels a little bit lax, wean splint, progress use as tolerated, follow-up 3 to 4 weeks and see if she is improving or if she needs it repaired. Health Concerns Section Related Observation LastModified by Organization Detai ls LastModified Time None Recorded Concern Status LastModified by Organization Details LastModified Time None Recorded Advance Directives Directive None Recorded Payers Encounter Date Sequence Insurance Name Policy Number Policy Arriola Covered Member ID Arriola Member ID Guarantor Name 06/17/2023 1 [facility] [id number] Mirella Matos [id number] Mirella Matos 06/17/2023 1 [facility] [id number] Mirella Matos [id number] Mirella Matos 07/15/2023 1 [facility] [id number] Mirella Matos [id number] Mirella Matos Notes Date Note Type Note Provider Name and Address Organization Details Recorded Time 06/17/2023 text/html Consult requeste d by: Jorge Tong [facility] Physician: Hand dominance: {{Right* Left ambidext dayron}}Location: {{Right Left* Bilatera l}} {{Hand* Wrist Elbow Ot her}} Pain level: {{0 1 2 3* 4 5 6 7 8 9 10}} /10 Date of injury: Marchuration: 2- months Recent Surgery: {{Yes No*}}Procedure:D ate of surgery:Duration: In office procedure? {{Yes No*}} Previous upper extremity surgery? {{Yes* No}}Procedure: augusta carpal tunnelApproximate date of surgery: 2015Surgeon (if known): King Fernandez Procedure: cyst on leftApproximate date of surgery:2014Surgeon (if known) King Fernandez Have you or any of your immediate family members been seen by our hand surgeons before? 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 {{Yes* No}} Is this injury associated with a Workers Compensation claim? 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 Carlo rudolph for lt hand/wrist pain. She was seen at [facility], Jorge Tong MD referred her here. Reports that she was moving a bed (pushing) and her hand slipped and she has been feeling mild pain since, radial aspect left index finger radiating to the palmar aspect. Intermittent n/t. Does have to type daily at work which has been uncomfortable since injury. KEILY VELASCO MD [address] [place] [address], [address], [facility] 06/17/2023 08:52:12 06/17/2023 text/html complete tear of ligament of handLeft index finger MCP RCL tear, her joint is stable. I believe that her injury may heal with conservative management. She will be fitted for a splint today. We discussed surgical intervention if Sx do not subside with conservative management. Follow up in 4 weeks to reassess whether we are heading in the right direction. If no improvement she is a candidate for radial collateral ligament repair left index finger RASHID Ronald MARKS JR, OTR/L, CHT [address] [place], [address], [facility] 06/17/2023 09:25:09 07/15/2023 text/html Consult requeste d by: Jorge Tong [facility] Physician: Hand dominance: {{Right* Left ambidext dayron}}Location: {{Right Left* Bilatera l}} {{Hand* Wrist Elbow Ot her}} Pain level: {{0 1 2 3 4* 5 6 7 8 9 10}} /10 Date of injury: Marchuration: 3 months Recent Surgery: {{Yes No*}}Procedure:D ate of surgery:Duration: In office procedure? {{Yes No*}} Previous upper extremity surgery? {{Yes* No}}Procedure: augusta carpal tunnelApproximate date of surgery: 2015Surgeon (if known): King Fernandez Procedure: cyst on leftApproximate date of surgery:2014Surgeon (if known) King Fernandez Have you or any of your immediate family members been seen by our hand surgeons before? 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 {{Yes* No}} Is this injury associated with a Workers Compensation claim? {{Yes No*}} Patient arrived in: {{cast splint surgical dressing OTC brace n/a#}} Squeezer Operator Strength: right: left: Ms. Matos is here for a recheck. She states that her pain has increased slightly since the last visit and report that she has more swelling in the fingers. She describes it as a tooth ache . KEILY VELASCO MD [address] [place], [address], [facility] 07/15/2023 14:10:42 OBGyn Episode No OBEpisode recorded.
--- NOTE | 2025-03-19 08:00 | US_ITS ---
FINAL REPORT CLINICAL HISTORY: Right upper quadrant pain that radiates to back COMPARISON: None FINDINGS: Sonographic images of the right upper quadrant were obtained. The pancreas is partially obscured. The liver has an unremarkable appearance. The gallbladder is surgically absent. There is no evidence of biliary ductal dilatation. The common duct is dilated measuring up to 1 cm, which is probably related to the prior cholecystectomy. Limited images of the right kidney are unremarkable. IMPRESSION: Unremarkable right upper quadrant ultrasound. Reviewed, Interpreted and Dictated by Pk Rosas MD Transcribed by Khadra Lancaster Authenticated and [facility]
== END 2025-03-19 23:59 | disposition home or self-care (01) ==
LOC: RAD 07:58
PROVIDERS: PCP Internal Medicine; Visit Provider Internal Medicine
DX: R10.11 Right upper quadrant pain (principal); R07.9 Chest pain, unspecified
CPT/HCPCS: 76705

== ENCOUNTER 2025-03-24 08:48 | Outpatient (POV) | payer OTHER, SELFPAY ==
[2025-03-24 09:05] VITALS: BP 106/77; PULSE 85; RESP 14; O2SAT 98; BMI 24.0
--- NOTE | 2025-03-24 09:08 | EXP.PAIN.SOA ---
[facility] Disclaimer: The information contained in this section may have been updated after the patient was seen, as this information can be updated by other users. Medical History Family history of heart disease delivery delivered Dizziness Edema Palpitations Dyspnea Chest pain Surgical History History of tonsillectomy and adenoidectomy History of cholecystectomy H/O: hysterectomy Family History Other No significant family history Social History Smoking Status: Never smoker alcohol intake: current alcohol intake frequency: holidays/special occasions only substance use type: denies use current occupational status: other Travel in the last 8 weeks?: None household members: spouse housing: house current occupation: [employer] caffeine: Yes PM Subjective & Objective Subjective Subjective:: Patient is a pleasant 54-year-old female who presents today for 1 month follow-up. Today she rates her pain a 3 out of 10. Patient denies any new trauma or injury. Patient does state overall she still feels like her last SI injections are helping that were done in January. Patient did have 80% relief. Patient does state however she knows a lot of her pain is also related to arthritis and that she can tell a big difference when the weather changes. Patient states over the weekend she had her right hand barely usable due to the severe pain related to the arthritis. Patient does state that she continues to use the compounded cream and it helps tremendously. Patient has been tried on Flexeril in the past however states that it would often cause drowsiness. Patient denies any other muscle relaxers in the past. Her Loy has been reviewed and is appropriate. Review of Systems: General: No recent weight changes, no fever, no sleep disturbances Respiratory: No cough, no shortness of air, no recurring pulmonary infections Cardiovascular/peripheral vascular: No chest pain, no palpitations, no edema, no shortness of breath Gastrointestinal: No new onset incontinence, normal bowel movements reported Genitourinary: No new onset incontinence Musculoskeletal: Low back pain Psychiatric: [Normal mood/affect] Neurological: [Denies weakness in extremities], [denies balance issues] Pain at rest (0-10 scale): 3 Objective Objective:: Physical Exam: General: Alert and oriented x3, no acute distress, pleasant and cooperative Lungs: Respirations even and unlabored, symmetrical chest expansion Eyes: PERRL Musculoskeletal: Flexion and extension of lumbar spine within normal limits Neurological: Speech clear, no gross sensory deficit Has patient had previous pain injection?: No Conservative treatment options previously tried: Home exercise plan Length of treatment: Longer than 12 weeks Meds Home Medications and Allergies Home Medications ?Medication ?Instructions ?Recorded ?Confirmed ?Type semaglutide (weight loss) 2.4 40 mg SQ WEEKLY 03/23/25 03/24/25 History mg/0.75 mL subcutaneous pen injector New Prescriptions to Start Prescriptions: Allergies Allergy/AdvReac Type Severity Reaction Status Date / Time propoxyphene (From Allergy Unknown CHEST Verified 03/23/25 08:44 DARVOCET-N) PRESSURE codeine AdvReac Mild NA-NAUSEA/V Verified 03/23/25 08:44 OMITING Assessment and Plan *Assessment and plan (1) Bilateral sacroiliitis: Status: Acute Category: Medical Code(s): M46.1 - Sacroiliitis, not elsewhere classified Plan Patient continues to do well following her SI injections in January and does not require any additional injection therapy at this time. Patient was counseled that we will plan on seeing her back in 3 months. I did discuss with the patient that I will send in a 2-week dose of methocarbamol 500 mg 3 times daily as needed. We did also discuss the possibility of medication for daily arthritis however she does state that she has recently had some heart related complaints and is having a CTA coming up. I did discuss with the patient that due to this fact we will wait and discuss this in future. Patient agrees with this plan of care. Patient has been instructed to contact the clinic with any concerns before the next appointment. Dr. Prince has reviewed this note and agrees with this plan of care. This note was dictated using voice recognition software and make contain errors or omissions. All injections are used with Lidocaine, Bupivacaine and dexamethasone. Occasionally urine drug screen is needed to verify patient's compliance with our office pain contract. This is ordered based off specific treatments related to chronic pain with the potential to abuse certain medications.
== END 2025-03-24 23:59 | disposition home or self-care (01) ==
PROVIDERS: PCP Internal Medicine; Visit Provider Nurse Practitioner Family
DX: M46.1 Sacroiliitis, not elsewhere classified (principal)
CPT/HCPCS: 99212; G0463

== ENCOUNTER 2025-03-29 12:00 | Outpatient (CLI) | payer OTHER, SELFPAY ==
--- OUTSIDE RECORDS SUMMARY | 2025-03-29 12:02 | XMS_ITS | Data Portability ---
Author Organization [facility] [place] Address [address] [address] [place] [address] Assessment No assessment recorded. Plan of Treatment [...] completed RASHID MARKS JR, OTR/L, CHT [address] [place], [address], [facility] 06/17/2023 09:24:51 Imaging Results None recorded. Procedure Notes None recorded. Medical Equipment None Reported. Allergies Allergen ID Allergen Name Allergen Category Reaction Reaction Severity Criticality Documentation Date Start Date Code Code System Note Provider Name and Address Organization Details Recorded Time [id number] codeine medicatio n vomiting Not available Not [...] Updated DateTime 06/17/2023 165.1 cm 27.5 kg/m2 13947.74 g 3 Tereza Ge [facility] 06/17/2023 08:37:11 Date Recorded Body height Body mass index (BMI) Body weight Pain severity - 0-10 verbal numeric rating [Score] - Reported Provider Name and Address Organization Details Last Updated DateTime 07/15/2023 165.1 cm 27.5 kg/m2 42016.74 g 4 Saige Costa [facility] 07/15/2023 13:46:39 Social History None recorded. Functional Status None recorded. Mental Status None recorded. Family History Nothing Reported. Medical History No medical history recorded. Gynecological HistoryNo gynecological history recorded. Obstetrics History GPAL:G 0 P 0 0 0 0 Past Encounters Encounter ID Performer Location Encounter Start Date Encounter Closed Date Diagnosis/Indication Diagnosis SNOMED-CT Code Diagnosis ICD10 Code Diagnosis Note [id number] KEILY VELASCO MD [facility] [place] [address] [place] [address] 06/17/2023 08:28:32 06/17/2023 08:50:52 Complete tear of ligament of hand 212920598 S63.90XA Left index finger MCP RCL tear, [...] radial collateral ligament repair left index finger [id number] RASHID MARKS JR, OTR/L, CHT PHYSICAL THERAPY / HAND THERAPY [place] [address] [place] [address] 06/17/2023 08:58:18 06/18/2023 04:53:03 Complete tear of ligament of hand 578783390 S63.611D [id number] KEILY VELASCO MD [facility] [place] [address] [place] [address] 07/15/2023 13:14:56 07/15/2023 14:35:29 Complete tear of ligament of hand 609086610 S63.90XA Left index finger MCP RCL tear, [...] Recorded Advance Directives Directive None Recorded Payers Insurance Date Sequence Insurance Name Policy Number Policy Arriola Covered Member ID Arriola Member ID Guarantor Name 12/09/2023 1 [facility] [id number] Mirella Matos [id number] Mirella Matos Notes Date Note Type Note Provider Name and Address Organization Details Recorded Time 06/17/2023 text/html Consult requeste d by: Jorge Tong [facility] Physician: Hand dominance: {{Right* Left ambidext dayron}}Location: [...] Fernandez Procedure: cyst on leftApproximate date of surgery:2014Suge (if known) [place] Fernandez Have you or any of your immediate family members been seen by our hand surgeons before? 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 {{Yes* No}} Is this injury associated with a Workers Compensation claim? 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 Carlo rudolph for lt hand/wrist pain. She was seen at [facility], Jorge Tong MD referred her here. Reports that she was moving a bed (pushing) and her hand slipped and she has been feeling mild pain since, radial aspect left index finger radiating to the palmar aspect. Intermittent n/t. Does have to type daily at work which has been uncomfortable since injury. KEILY VELASCO MD [facility] [place], [address], [facility] 06/17/2023 08:52:12 06/17/2023 text/html complete tear of [...] collateral ligament repair left index finger RASHID Cardenas SELINA JR, OTR/L, CHT [address] [place], [address], [facility] 06/17/2023 09:25:09 07/15/2023 text/html Consult requeste d by: Jorge Tong [facility] Physician: Hand dominance: {{Right* Left ambidext dayron}}Location: [...] hand surgeons before? 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 {{Yes* No}} Is this injury associated with a Workers Compensation claim? 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 Matos is here for a recheck. She states that her pain has increased slightly since the last visit and report that she has more swelling in the fingers. She describes it as a tooth ache . KEILY VELASCO MD [address] [place], [address], [facility] 07/15/2023 14:10:42 OBGyn Episode No OBEpisode recorded.
[2025-03-29 12:19] VITALS: BP 126/71; PULSE 78; RESP 18; O2SAT 100; BMI 24.6
[2025-03-29] MEDS: IVABRADINE HCL 7.5MG TABLET PO (12:25)
[2025-03-29] MEDS: METOPROLOL TARTRATE 50MG TABLET PO (12:26)
--- NOTE | 2025-03-29 13:00 | CT_ITS ---
APPROVED REPORT Section 8 Property Manager: CLINICAL INDICATION Chest Pain TECHNIQUE Image Acquisition: A 128 slice MDCT scanner ([employer]) was used for data acquisition. A noncontrast coronary calcium scan was performed. A CT attenuation threshold of 130 Hounsfield units (HU) was used for the detection of calcium in contiguous voxels of 1 sq mm in area to be counted as individual lesions. Bolus tracking in the ascending aorta with a threshold of 180 HU was performed. Immediately afterwards, ECG synchronized cardiac CT was then performed from the cardiac base to apex using retrospective gating with ECG tube current modulation. A total of 85 mL of Isovue 370 mg/mL contrast medium was administered at 5 mL/sec followed by a saline flush using a biphasic injection protocol. A tube voltage of 120 KVp was used. The patient received the following medications prior to the cardiac CT. 75 mg of oral metoprolol 5 mg of intravenous metoprolol 15 mg of oral ivabradine 0.8 mg of sublingual nitroglycerin The average heart rate at the time of acquisition was 59 bpm and regular. Image Reconstruction Transaxial images were reconstructed at 0.67 mm slide thickness. Data was reviewed interactively on an advanced workstation capable of 2 and 3-dimensional displays in all conventional reconstruction formats, including multiplanar reformations, maximum intensity projections, curved multiplanar reformations, and volume rendered reconstructions. When applicable, selected routine images describing the relevant coronary anatomy and pathology were saved and sent to PACS. Complications None Technical Quality Overall image quality was good. Coronary artery opacification was adequate. Total DLP (Dose-Length Product) is 1574.0 mGy-cm. The reported value represents the total of one or more individual components during the CT acquisition of this date and at this time, and as such, the same value may appear in more than one CT report depending on the interpreting/reporting physicians. COMPARISON None FINDINGS CT Coronary Calcium Scoring LMA (Left Main Artery) = 0 LAD (Left Anterior Descending) = 0 LCX (Left Coronary Circumflex) = 0 RCA (Right Coronary Artery) = 0 Total Calcium Score = 0 using the AJ-130 method. The interpretation of the calcium heart score is based on the following continuum*: 0 = no calcified plaque detected (risk of coronary artery disease is very low ??? less than 5%) 1-10 = calcium detected in extremely minimal levels (risk of coronary diseases is still low ??? less than 10%) 11-100 = mild levels of plaque detected with certainty (mild or minimal narrowing of heart arteries is likely) 101-400 = definite,at least moderate levels of plaque detected (relatively high risk of a heart attack within 3-5 years) >401-999 = extensive levels of plaque detected (high risk of heart attack, high levels of vascular disease are present, high likelihood of at least one significant coronary narrowing) *The calcium heart score quantifies the burden of coronary calcification/plaque in the coronary arteries. The calcium heart score is not able to evaluate the presence or burden of non-calcified (i.e. soft) plaque. There is no identifiable calcification in the aortic valve, mitral annulus or mitral valve, pericardium, or myocardium. Coronary CT Angiography The coronary arterial system is right dominant. Quantitative Stenosis Grading: Left Main (LM): The left main originates normally from the left sinus of Valsalva. The LM bifurcates into the left anterior descending artery and left circumflex artery. The LM is patent with no evidence of atherosclerosis. Left Anterior Descending (LAD) and Diagonal Branches: The LAD gives off 2 diagonal branch(es). The LAD and its branches are patent with no evidence of atherosclerosis. There is no evidence of LAD-myocardial bridge. Left Circumflex (LCX) and Obtuse Marginals (OM): The LCX gives off 1 Obtuse Marginal (OM) branch(es). The LCX and its branches are patent with no evidence of atherosclerosis. Right Coronary Artery (RCA): The RCA originates normally from the right sinus of Valsalva. The RCA gives off a posterior descending artery (PDA) and posterolateral (PL) branches. The RCA and its branches are patent with no evidence of atherosclerosis. Non-Coronary Cardiac Findings: Analysis of the left ventricular (LV) structure and function was performed after 3-D reconstruction of the LV from axial images, with user-corrected automatic contouring for assessment of LV volumes and user-defined reconstruction from oblique planes for measurement of 3-D cardiac structure and function. -The left ventricle systolic function is normal. -There is no left atrial appendage filling defect. Two right pulmonary veins and two left pulmonary veins drain normally into the left atrium. -No pericardial thickening or calcification. -Central and branch pulmonary arteries in the cldby-mo-siat are unremarkable. -Thoracic aorta within the visualized thoracic aortic-branches in the osfxj-ua-tdph is unremarkable. Extracardiac Structures No significant extra-cardiac findings. Note, however, that this study is focused on the cardiac findings. IMPRESSION -Absence of coronary calcification with an Agatston score = 0 using the AJ-130 method. -No evidence of significant flow-limiting atherosclerosis of the coronary arteries. -No evidence of myocardial bridges or coronary anomalies. -CAD-RADS 0. Management recommendations per ACC/AHA guidelines*, as clinically appropriate. *Recommendations: CAD RADS 0: Reassurance. Consider non-atherosclerotic causes of chest pain. CAD RADS 1: Consider non-atherosclerotic causes of chest pain. Consider preventive therapy and risk factor modification. CAD RADS 2: Consider non-atherosclerotic causes of chest pain. Consider preventive therapy and risk factor modification, particularly for patients with nonobstructive plaque in multiple segments. CAD RADS 3: Consider further functional testing. Consider symptom-guided anti-ischemic and preventive pharmacotherapy as well as risk factor modification per published guideline statements. CAD RADS 4A: Consider further functional testing or invasive coronary angiography with revascularization per published guideline statements. Consider symptom-guided anti-ischemic and preventive pharmacotherapy as well as risk factor modification per published guideline statements. CAD RADS 4B: Invasive coronary angiography recommended with revascularization per published guideline statements. Consider symptom-guided anti-ischemic and preventive pharmacotherapy as well as risk factor modification per published guideline statements. CAD RADS 5: Consider invasive angiography and/or viability assessment with revascularization per published guideline statements. Consider symptom-guided anti-ischemic and preventive pharmacotherapy as well as risk factor modification per published guideline statements. CRITICAL RESULT None COMMUNICATION Per this written report The coronary and cardiac findings of this CCTA were reviewed, reported, and signed by David Pryor MD (Bell Attendant) Conclusion Electronically signed by : Yenni Pryor MD 03/30/2025 11:57:15
[2025-03-29 14:15] VITALS: BP 119/73; PULSE 69; RESP 18; O2SAT 97
[2025-03-29 14:23] VITALS: BP 89/55; PULSE 78; RESP 17; O2SAT 100
[2025-03-29] MEDS: METOPROLOL TARTRATE 5MG/5ML VIAL 5 MG IV (14:23)
[2025-03-29 14:30] VITALS: BP 107/67; PULSE 65; RESP 17; O2SAT 100
[2025-03-29] MEDS: SODIUM CHLORIDE 0.9% 10ML SYR (RAD ONLY) 10 ML IV (14:35)
[2025-03-29] MEDS: 0.9 % SODIUM CHLORIDE 50 ML VIAL IV (14:35)
[2025-03-29] MEDS: IOPAMIDOL-370 (76%);100ML BOTTLE 85 ML IV (14:35)
[2025-03-29] MEDS: NITROGLYCERIN 0.4MG SL TABLET SL (14:36)
== END 2025-03-29 14:34 | disposition home or self-care (01) ==
PROVIDERS: PCP Internal Medicine; Visit Provider Physician Assistant
DX: R94.31 Abnormal electrocardiogram [ECG] [EKG] (principal); R07.9 Chest pain, unspecified
CPT/HCPCS: 75574; Q9967

== ENCOUNTER 2025-06-23 08:37 | Outpatient (POV) | payer OTHER, SELFPAY ==
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
--- OUTSIDE RECORDS SUMMARY | 2025-06-23 08:42 | XMS_ITS | Clinical Summary ---
Author Organization Healthcare Address [address] [place] [address] Care Team Providers Care Removable Prosthodontist Name Role Phone Jeromy Abraham MD Primary Care Provider [phone] Allergies Active Allergy Reactions Criticality Noted Date Comments Codeine Other - please docum ent in the comment field Low 11/21/2015 pt stated that she is now able to take codeine. pt stated that she is now able to take codeine. Medications estradiol (Estrace) 0.5 MG tabletIndication s:Vasomotor Symptoms of Menopause Take 1 tablet (0.5 mg total) by mouth 1 (one) time each day. 60 tablet 01/30/2022 Active buPROPion XL (Wellbutrin XL) 300 MG 24 hr tablet TAKE ONE TABLET BY MOUTH EVERY DAY 30 tablet 11 02/20/2022 Active Active Problems Problem Noted Date Diagnosed Date Endometrial cancer 01/02/2022 Cancer Staging:Clinical stage from 12/02/2015:FIGO Stage IA, calculated as Stage Unknown(cT1a, cNX, cM0) - Unsigned Family History Medical History Relation Name Comments Breast cancer Cousin FH: breast can cer Breast cancer Mother FH: breast can cer Menorrhagia Other FH: bladder can cer Cervical cancer Paternal Grandmother Fami ly history of cervical cancer Relation Name Status Comments Cousin Mother Other Paternal Grandmother Social History Tobacco Use Types Packs/Day Years Used Date Smoking Tobacco: Passive Smo ke Exposure - Never Smoker Comments No Sex and Gender Information Value Date Recorded Sex Assigned at Not on file Legal Sex Female 8:22 PM EDT Gender Identity Not on file Sexual Orientation Not on file Last Filed Vital Signs Vital Sign Reading Time Taken Comments Blood Pressure 129/96 01/24/2022 10:46 AM EST Pulse 87 01/24/2022 10:46 AM EST Temperature - - Respiratory Rate - - Oxygen Saturation - - Inhaled Oxygen Concentration - - Weight 77 kg (169 lb 12.1 oz) 01/24/2022 10:46 A M EST Height 167.6 cm (5' 6 ) 01/24/2022 10:46 AM EST Body Mass Index 27.4 01/24/2022 10:46 AM EST Plan of Treatment Health Maintenance Due Date Last Done Comments [facility]-Depression Screening 1972 [facility]-/Child/Adol SDOH Screenings 1972 [facility]- SDOH Screenings 1990 [facility]-Adult SDOH Screenings 1990 [facility]-DTaP,Tdap,and Td Vaccines (1 - Tdap) 1991 [facility]-Hepatitis B Vaccines (1 of 3 - 19+ 3-dose series) 1991 CT Colonography 2017 Colonoscopy 2017 FIT-DNA 2017 FIT 2017 FOBT 2017 Sigmoidoscopy 2017 [facility]-Colorectal Cancer Screening 2017 [facility]-Pap Smear 01/14/2021 01/14/2018, 12/20, 05/25/1993, Additional history exists [facility]-Pneumococcal Vaccine: 50+ Years (1 of 1 - PCV) 2022 [facility]-Zoster Vaccines (1 of 2) 2022 [facility]-Cervical Cancer Screening 01/14/2023 [facility]-HPV/Cotest 01/14/2023 01/14/2018, 12/20, 01/09/2017, Additional history exists [id number]-01 Vaccine ( season) 2024 12/23/2020, 11/25/2020 [facility]-Influenza Vaccine (#1) 2025 09/02/2024 HPV Vaccines Aged Out No longer eligi ble based on patient's age to complete this topic [facility]-HIB Vaccines Aged Out No longer e ligible based on patient's age to complete this topic [facility]-Hepatitis A Vaccines Aged Out No longer eligible based on patient's age to complete this topic [facility]-IPV Vaccines Aged Out No longer e ligible based on patient's age to complete this topic [facility]-Rotavirus Vaccines Aged Out No lo nger eligible based on patient's age to complete this topic Procedures Procedure Name Priority Date/Time Associated Diagnosis Comments CYTO DATA CONVERSION Routine 01/14/2018 12:00 AM EST from Last 3 Months or Most Recently Relevant to Health Maintenance Results * (ABNORMAL) Cytology (01/14/2018 12:00 AM EST) 01/14/2018 01/15/2018 9:4 8 AM EST Narrative SUNQUEST - 01/31/2018 11:41 AM EDT [facility] MR #: [id number] [facility] [address] [place], [place] [address] 1970 (Age: 47) FW Collect Date: 01/14/2018 00:00 Receipt Date: 01/15/2018 09:48 Page 1 DEPARTMENT OF PATHOLOGY AND LABORATORY MEDICINE CYTOPATHOLOGY REPORT Email: [phone] ATTENDING MD/Practitioner: Les Srivastava MD Service: [facility] Location: [facility] OTHER MD(S): Navya Jessica APRN Reported: 01/31/2018 11:41 Collected: 01/14/2018 00:00 INTERPRETATION A. THIN PREP (VAGINAL): - ATYPICAL SQUAMOUS CELLS - UNDETERMINED SIGNIFICANCE. - FUNGAL ORGANISMS CONSISTENT WITH SHELTON SPECIES. SATISFACTORY FOR EVALUATION. Slide scanned and imaged by [employer] ThinPrep Imaging System with manual review of all selected galan. Electronically Signed Out ONEAL Del Rosario(ASCP) Joe Marie M.D. Cervical cytology is a screening test primarily for squamous cancers and precursors and has associated false negative and positive results. New technologies such as liquid based sampling may decrease but will not eliminate all false negative results. Regular screening and follow-up of unexplained clinical signs and symptoms are recommended to minimize false negative results. Please see the ASCCP website (www.asccp.org) for followup recommendations. If HPV testing was requested, correlation with the results is suggested (please call Microbiology at [phone] for results). CLINICAL INFORMATION: Menstrual History: Post-hysterectomy: no remaining cervix Date of Last Menstrual Period: {Not Provided} Contraceptive History: control pills Other Clinical Conditions: If ASCUS and > 24 years of age, HPV/DNA testing requested. Previous or suspected abnormality History of [employer]C [employer]TER [employer] ARC cancer Clinical information indicates patient has high risk factor(s). SPECIMEN DESCRIPTION: A: THIN PREP (VAGINAL) THIN PREP PROCESS CELLULAR ENHANCEMENT ICD: R87.620 Atyp squam cell of undet signfc cyto smr vagn (ASC-US) B37.3 Candidiasis of vulva and vagina Z85.40 Prsnl history of malig neoplm of unsp female genital organ F: A; DX IMAGE 10151, 77024 C\V (PO) SNOMED CODES: A; D8Y975 M-00607 E4080 M- 41055 In cases where a pathologist has signed out the report, the service has been rendered in part by a resident. The signing pathologist has performed and is responsible for the reported pathologic evaluation. Zonia Srivastava MD LAB PATHOLOGY ORDERABLES Maritza esqueda Result [employer] from Last 3 Months or Most Recently Relevant to Health Maintenance Insurance [facility] Care Teams Removable Prosthodontist Relationship Specialty Start Date End Date Jeromy Abraham MD [address] [facility] [place] [address] [place] [address] PCP - General 01/24/22
[2025-06-23 08:53] VITALS: BP 111/70; PULSE 83; RESP 14; O2SAT 100; BMI 21.7
--- NOTE | 2025-06-23 08:57 | XR_ITS ---
FINAL REPORT CLINICAL HISTORY: neck pain COMPARISON: 10/22/2018 FINDINGS: CERVICAL SPINE Three views were obtained. There is no acute fracture. The disc spaces are well-preserved. There is mild anterior osteophyte formation at C5-6 and C6-7, progressed from prior. There is no malalignment. IMPRESSION: Degenerative changes as above. Reviewed, Interpreted and Dictated by Pk Rosas MD Transcribed by Yasmeen Washington Authenticated and [facility]
== END 2025-06-23 23:59 | disposition home or self-care (01) ==
PROVIDERS: PCP Internal Medicine; Visit Provider Nurse Practitioner Family
DX: M46.1 Sacroiliitis, not elsewhere classified (principal); M51.360 Other intervertebral disc degeneration, lumbar region with discogenic back pain only; Z79.899 Other long term (current) drug therapy
CPT/HCPCS: 72040; 99212; G0463

== ENCOUNTER 2025-07-27 11:33 | Day surgery (SDC) | payer OTHER, SELFPAY ==
[2025-07-27 11:39] VITALS: BP 118/77; PULSE 73; RESP 18; O2SAT 99
[2025-07-27 11:41] VITALS: BP 114/81; PULSE 72; RESP 18; O2SAT 100; BMI 20.1
[2025-07-27] MEDS: DEXAMETHASONE 10MG/ML 1ML VIAL 10 MG (11:41)
[2025-07-27] MEDS: BUPIVACAINE 0.25% 10ML INJ 25 MG IJ (11:42)
[2025-07-27] MEDS: LIDOCAINE 1% 5ML PF VIAL 5 ML (11:42)
[2025-07-27 11:48] VITALS: BP 115/74; PULSE 70; RESP 18; O2SAT 99
--- NOTE | 2025-07-27 12:01 | P.PCN_ITS ---
Procedure Date: 07/27/25 Time: 11:40 Anesthesiologist:: Jorge Monsivais CRNA Complications:: None Pre-procedure Diagnosis:: Bilateral sacroiliitis Post-procedure Diagnosis:: Same Indications for Procedure:: Patient is a pleasant 54-year-old female who comes her clinic today for bilatera l sacroiliac joint injection cortisone local anesthetic. Patient describes low lumbar back pain off the midline bilaterally. Difficulty transitioning from sitting to standing. Difficulty with ambulation. Difficulty with standing for extended length of time. She rates her pain 7/10. Procedure Details:: Procedure: Bilateral sacroiliac joint injections under fluoroscopy Informed consent was obtained and the risks and benefits of the procedure were explained to the patient.~ The patient was taken to the procedure room and noninvasive monitors were placed including a noninvasive blood pressure cuff and pulse oximeter.~ The patient was placed prone on the procedure table. Both hips were cleansed using Betadine as a cleansing solution. C-arm fluoroscopy was used to view the right sacroiliac joint.~ The skin and subcutaneous tissues were anesthetized using lidocaine 1.5% and a 25-gauge needle.~ After this, a 22-gauge spinal needle was inserted under fluoroscopic guidance into the inferior aspect of the right sacroiliac joint.~ Omnipaque dye was injected and good spread was seen throughout the joint.~ After this, approximately 5 mL of bupivacaine, 0.25% and dexamethasone 5 mg was incrementally injected into the right sacroiliac joint. We then moved to the left sacroiliac joint.~ The skin and subcutaneous tissues were anesthetized using lidocaine 1.5% and a 25-gauge needle.~ After this, a 22- gauge spinal needle was inserted under fluoroscopic guidance into the inferior aspect of the left sacroiliac joint.~ Omnipaque dye was injected and good spread was seen throughout the joint. After this, approximately 5 mL of bupivacaine, 0.25% and dexamethasone 5 mg was incrementally injected into the left sacroiliac joint.~ The patient tolerated the procedure well with no complications. The patient was observed in the Pain Clinic and then was discharged home neurologically intact. Plan and Disposition:: Patient was discharged without incident.
== END 2025-07-27 11:48 | disposition home or self-care (01) ==
PROVIDERS: PCP Internal Medicine; Visit Provider Nurse Anesthetist, Certified Registered
DX: M46.1 Sacroiliitis, not elsewhere classified (principal); Z88.5 Allergy status to narcotic agent
CPT/HCPCS: 64450; J0665; J1100; J2003

== ENCOUNTER 2025-10-07 10:39 | Outpatient (CLI) | payer OTHER, SELFPAY ==
--- NOTE | 2025-10-07 10:45 | XR_ITS ---
FINAL REPORT CLINICAL HISTORY: Mid thoracic back pain, right thoracic neuralgia COMPARISON: None FINDINGS: Three views of the thoracic spine were obtained. There is no fracture present. There is no malalignment. The vertebrae are normal in height. There are no significant degenerative changes. There are minimal osteophytes in the mid thoracic spine. IMPRESSION: No acute process. Reviewed, Interpreted and Dictated by Pk Rosas MD Transcribed by Khadra Lancaster Authenticated and [facility]
[2025-10-07 10:49] LABS: Hematocrit 41.2 % (37.0-47.0); Hemoglobin 14.8 g/dL (12.2-16.2); Immature Granulocytes % 0.2 %; Mean Corpuscular HGB Conc 35.9 g/dL (31.8-35.4); Mean Corpuscular Hemoglobin 32.8 pg (27.0-31.2); Mean Corpuscular Volume 91.4 fl (81-99); Nucleated Red Blood Cells % 0 %; Platelet Count 260 K/mm3 (142-424); Red Blood Count 4.51 M/mm3 (4.20-5.40); Red Cell Distribution Width-SD 40.6 fL; White Blood Count 6.1 K/mm3 (4.8-10.8)
[2025-10-07 11:14] LABS: Alanine Aminotransferase 19 U/L (12-78); Albumin Level 4.9 g/dl (3.5-5.0); Albumin/Globulin Ratio 2.2 (1.1-1.8); Alkaline Phosphatase 66 U/L (38-126); Anion Gap 12.2 mEq/L (5-15); Aspartate Amino Transferase 25 U/L (14-36); Bilirubin,Total 0.9 mg/dl (0.2-1.3); Blood Urea Nitrogen 10 mg/dl (7-17); Calcium 9.6 mg/dl (8.4-10.2); Carbon Dioxide 26 mmol/L (22.0-30.0); Chloride 102 mmol/L (98-107); Cholesterol 161 mg/dl (140-200); Creatinine,Serum 0.70 mg/dl (0.52-1.04); Estimated Glomerular Filt Rate 88 ml/min (>60); GFR (African American) 106 ML/MIN (>60); Globulin 2.2 g/dL (1.3-3.2); Glucose 98 mg/dl (74-100); HDL Cholesterol 53 mg/dl (40-60); Potassium 4.2 mmoL/L (3.5-5.1); Sodium 136 mmol/L (136-145); Total Protein,Serum 7.1 g/dl (6.3-8.2); Triglycerides 141 mg/dl (30-150)
--- OUTSIDE RECORDS SUMMARY | 2025-10-07 11:40 | XMS_ITS | Clinical Summary ---
Author Organization Healthcare Address [address] [place] [address] Care Team Providers Care Marine Meteorologist Name Role Phone Jeromy Abraham MD Primary Care Provider Allergies Active Allergy Reactions Criticality Noted Date [...] Date Last Done Comments [facility]-Depression Screening 1972 [facility]-Infant/Child/Adol SDOH Screenings 1972 [facility]- SDOH Screenings 1990 [...] 01/14/2023 01/14/2018, 12/20, 01/09/2017, Additional history exists [id number] Vaccine ( season) 2025 12/23/2020, 11/25/2020 [facility]-Influenza Vaccine (#1) 2025 09/02/2024 [...] Narrative SUNQUEST - 01/31/2018 11:41 AM EDT [facility] MR #: [id number] [facility] [address] [place], [place] [address] 1970 (Age: 47) FW Collect Date: 01/14/2018 00:00 Receipt Date: 01/15/2018 09:48 Page 1 DEPARTMENT OF PATHOLOGY AND LABORATORY MEDICINE CYTOPATHOLOGY REPORT Email: [email or web address] [phone] ATTENDING MD/Practitioner: Les Srivastava MD Service: [facility] Location: [facility] OTHER MD(S): Navya Jessica APRN Reported: 01/31/2018 11:41 Collected: 01/14/2018 00:00 INTERPRETATION A. THIN PREP (VAGINAL): - ATYPICAL SQUAMOUS CELLS - UNDETERMINED SIGNIFICANCE. - FUNGAL ORGANISMS CONSISTENT WITH SHELTON SPECIES. SATISFACTORY FOR EVALUATION. Slide scanned and imaged by [employer] ThinPrep Imaging System with manual review of [...] results is suggested (please call Microbiology at [phone] for results). CLINICAL INFORMATION: Menstrual History: Post-hysterectomy: no remaining cervix Date of Last Menstrual Period: {Not Provided} Contraceptive History: control pills Other Clinical Conditions: If ASCUS and > 24 years of age, HPV/DNA testing requested. 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 SPECIMEN DESCRIPTION: A: THIN PREP (VAGINAL) THIN PREP PROCESS CELLULAR ENHANCEMENT ICD: R87.620 Atyp squam cell of undet signfc cyto smr vagn (ASC-US) B37.3 Candidiasis of vulva and vagina Z85.40 Prsnl history of malig neoplm of unsp female genital organ F: A; DX IMAGE 37859, 03960 C\V (PO) SNOMED CODES: A; C7S179 M-04653 E4080 M- 48830 In cases where a pathologist has signed out the report, the service has been rendered in part by a resident. The signing pathologist has performed and is responsible for the reported pathologic evaluation. Zonia Srivastava MD LAB PATHOLOGY ORDERABLES Maritza esqueda Result [employer] from Last 3 Months or Most Recently Relevant to Health Maintenance Insurance [facility] Care Teams Marine Meteorologist Relationship Specialty Start Date End Date Jeromy Abraham MD [address] [facility] [place] [address] [place] [address] PCP - General 01/24/22
--- OUTSIDE RECORDS SUMMARY | 2025-10-07 11:40 | XMS_ITS | Data Portability ---
Author Organization [facility] [place] [facility] [place] [facility] Address [address] [place] [address] Assessment No assessment recorded. Plan of Treatment [...] completed RASHID MARKS JR, OTR/L, CHT [address] [place], [address], [facility] 06/17/2023 09:24:51 Imaging Results None recorded. Procedure Notes None recorded. Medical Equipment None Reported. Allergies Allergen ID Allergen Name Allergen Category Reaction Reaction Severity Criticality Documentation Date Start Date Code Code System Note Provider Name and Address Organization Details Recorded Time 998460 codeine medicatio n vomiting Not available Not available 10/12/20162007 2670 RxNorm React ion: NAUSE A AND VOMIT ING; Comme nt: Creat ed By: Lopez Greene Creroula ed Date: 2007 10:57 :32 AM; Not Available [facility] 04:32:29 Medications Name Sig Start Date [...] Updated DateTime 06/17/2023 165.1 cm 27.5 kg/m2 71913.74 g 3 Tereza Ge [facility] 06/17/2023 08:37:11 Date Recorded Body height Body mass index (BMI) Body weight Pain severity - 0-10 verbal numeric rating [Score] - Reported Provider Name and Address Organization Details Last Updated DateTime 07/15/2023 165.1 cm 27.5 kg/m2 58879.74 g 4 Saige Costa [facility] 07/15/2023 13:46:39 Social History None recorded. Functional Status None recorded. Mental Status None recorded. Family History Nothing Reported. Medical History No medical history recorded. Gynecological HistoryNo gynecological history recorded. Obstetrics History GPAL:G 0 P 0 0 0 0 Past Encounters Encounter ID Performer Location Encounter Start Date Encounter Closed Date Diagnosis/Indication Diagnosis SNOMED-CT Code Diagnosis ICD10 Code Diagnosis IMO Codes Diagnosis Note [id number] KEILY VELASCO MD [facility] [address] [address] 06/17/2023 08:28:32 06/17/2023 08:50:52 Complete tear of ligament of hand 339639672 S63.90XA Left index finger MCP RCL tear, [...] radial collateral ligament repair left index finger [id number] RASHID MARKS JR, OTR/L, CHT PHYSICAL THERAPY / HAND THERAPY [facility] [address] [address] 06/17/2023 08:58:18 06/18/2023 04:53:03 Complete tear of ligament of hand 344923199 S63.611D [id number] KEILY VELASCO MD [facility] [address] [address] 07/15/2023 13:14:56 07/15/2023 14:35:29 Complete tear of ligament of hand 325598443 S63.90XA Left index finger MCP RCL tear, [...] Arriola Member ID Guarantor Name 12/09/2023 1 [facility] [id number] Mirella Matos [id number] Mierlla Matos Notes Date Note Type Note Provider Name and Address Organization Details Recorded Time 06/17/2023 text/html Consult requested by: Jorge Tong [facility] Physician: Hand dominance: RightLocation: Left Hand Pain level: 3 Date of injury: Marchuration: 2- months Recent Surgery: NoProcedure:Date of surgery:Duration: In office procedure? No Previous upper extremity surgery? YesProcedure: augusta carpal tunnelApproximate date of surgery: 2015Surgeon (if known): King Fernandez Procedure: cyst on leftApproximate date of surgery:2014Surge (if known) King Fernandez Have you or any of your immediate family members been seen by our hand surgeons before? 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 Yes Is this injury associated with a Workers Compensation claim? No Patient arrived in: n/a Speech And Language Specialist Strength: right: left:Ms. Carlo rudolph for lt hand/wrist pain. She was seen at [facility], Jorge Tong MD referred her here. Reports that she was moving a bed (pushing) and her hand slipped and she has been feeling mild pain since, radial aspect left index finger radiating to the palmar aspect. Intermittent n/t. Does have to type daily at work which has been uncomfortable since injury. KEILY VELASCO MD [address] [place] [address], [phone], [facility] 06/17/2023 08:52:12 06/17/2023 text/html complete tear [...] collateral ligament repair left index finger RASHID MARKS JR, OTR/L, CHT [address] [place], [address], [facility] 06/17/2023 09:25:09 07/15/2023 text/html Consult requested by: Jorge Tong [facility] Physician: Hand dominance: RightLocation: Left Hand Pain level: Date of injury: Marchuration: 3 months Recent Surgery: NoProcedure:Date of surgery:Duration: In office procedure? No Previous upper extremity surgery? YesProcedure: augusta carpal tunnelApproximate date of surgery: 2015Surgeon (if known): King Fernandez Procedure: cyst on leftApproximate date of surgery:2014Surgeon (if known) King Have you or any of your immediate family members been seen by our hand surgeons before? 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 Yes Is this injury associated with a Workers Compensation claim? No Patient arrived in: n/a Speech And Language Specialist Strength: right: left: Ms. Matos is here for a recheck. She states that her pain has increased slightly since the last visit and report that she has more swelling in the fingers. She describes it as a tooth ache . KEILY VELASCO MD [address] [place], [address], [facility] 07/15/2023 14:10:42 OBGyn Episode No OBEpisode recorded.
== END 2025-10-07 23:59 | disposition home or self-care (01) ==
LOC: RAD 10:39
PROVIDERS: PCP Internal Medicine; Visit Provider Internal Medicine
DX: M54.6 Pain in thoracic spine (principal); E78.49 Other hyperlipidemia; G89.29 Other chronic pain; M79.2 Neuralgia and neuritis, unspecified
CPT/HCPCS: 36415; 72072; 80053; 80061; 85025; 85651

== ENCOUNTER 2025-10-11 08:06 | Outpatient (CLI) | payer OTHER, SELFPAY ==
--- NOTE | 2025-10-11 07:45 | MR_ITS ---
FINAL REPORT TECHNIQUE: Multiplanar and multisequence MR imaging was obtained through the thoracic spine. CLINICAL HISTORY: 4-month history of thoracic back pain , neuralgia numbness, pain , tingling in mid back that goes across to right side and up to neck COMPARISON: None FINDINGS: There is normal alignment of the thoracic vertebral bodies in the sagittal plane. Vertebral body height is preserved. A hemangioma is present in the T10 vertebral body. Signal intensity within the substance of the spinal cord is normal. No acute paraspinal abnormality. There are multiple protrusions present in the thoracic spine. At the T5-6 level, there are small bilateral paracentral protrusions without evidence of canal stenosis or right neural foraminal narrowing. There is mild to moderate left neural foraminal narrowing. At the T6-7 level there is a right paracentral protrusion with mild mass effect on the anterior thecal sac and spinal cord. There is a T7-8 left paracentral protrusion with mild mass effect on the thecal sac, without foraminal narrowing. At T8-9 there is a left paracentral protrusion with mild canal stenosis, but no foraminal narrowing. A bulge is present at T9-10, with a T10-11 central disc protrusion producing mild canal stenosis. 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 Reviewed, Interpreted and Dictated by Barbara Torres MD Transcribed by Karla Rob Authenticated and [facility]
--- OUTSIDE RECORDS SUMMARY | 2025-10-11 08:09 | XMS_ITS | Data Portability ---
Author Organization [facility] [place] [facility] Address [address] [place] [address] Assessment No assessment recorded. Plan of Treatment [...] completed RASHID MARKS JR, OTR/L, CHT [address] [place], [address], [facility] 06/17/2023 09:24:51 Imaging Results None recorded. Procedure Notes None recorded. Medical Equipment None Reported. Allergies Allergen ID Allergen Name Allergen Category Reaction Reaction Severity Criticality Documentation Date Start Date Code Code System Note Provider Name and Address Organization Details Recorded Time 041961 codeine medicatio n vomiting Not available Not available 10/12/20162007 2670 RxNorm React ion: NAUSE A AND VOMIT ING; Comme nt: Creat ed By: Lopez Greene Creroula ed Date: 2007 10:57 :32 AM; Not Available [facility] 04:32:29 Medications Name Sig [...] Updated DateTime 06/17/2023 165.1 cm 27.5 kg/m2 07435.74 g 3 Tereza Ge [facility] 06/17/2023 08:37:11 Date Recorded Body height Body mass index (BMI) Body weight Pain severity - 0-10 verbal numeric rating [Score] - Reported Provider Name and Address Organization Details Last Updated DateTime 07/15/2023 165.1 cm 27.5 kg/m2 07342.74 g 4 Saige Costa [facility] 07/15/2023 13:46:39 Social History None recorded. Functional Status None recorded. Mental Status None recorded. Family History Nothing Reported. Medical History No medical history recorded. Gynecological HistoryNo gynecological history recorded. Obstetrics History GPAL:G 0 P 0 0 0 0 Past Encounters Encounter ID Performer Location Encounter Start Date Encounter Closed Date Diagnosis/Indication Diagnosis SNOMED-CT Code Diagnosis ICD10 Code Diagnosis IMO Codes Diagnosis Note [id number] KEILY VELASCO MD [facility] [address] [place] [address] 06/17/2023 08:28:32 06/17/2023 08:50:52 Complete tear of ligament of hand 762430214 S63.90XA Left index finger MCP RCL tear, [...] radial collateral ligament repair left index finger [id number] RASHID MARKS JR, OTR/L, CHT PHYSICAL THERAPY / HAND THERAPY [facility] [address] [place] [address] 06/17/2023 08:58:18 06/18/2023 04:53:03 Complete tear of ligament of hand 182020883 S63.611D [id number] KEILY VELASCO MD [facility] [address] [place] [address] 07/15/2023 13:14:56 07/15/2023 14:35:29 Complete tear of ligament of hand 215872285 S63.90XA Left index finger MCP RCL tear, [...] Arriola Member ID Guarantor Name 12/09/2023 1 [facility] [id number] Mirella Matos [id number] Mirella Matos Notes Date Note Type Note Provider Name and Address Organization Details Recorded Time 06/17/2023 text/html Consult requested by: Jorge Tong [facility] Physician: Hand dominance: RightLocation: Left Hand Pain [...] surgeons before? 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 Yes Is this injury associated with a Workers Compensation claim? No Patient arrived in: n/a Counter Molder Strength: right: left:Ms. Carlo rudolph for lt hand/wrist pain. She was seen at [facility], Jorge Tong MD referred her here. Reports that she was moving a bed (pushing) and her hand slipped and she has been feeling mild pain since, radial aspect left index finger radiating to the palmar aspect. Intermittent n/t. Does have to type daily at work which has been uncomfortable since injury. KEILY VELASCO MD [address] [place] [address], [address], [facility] 06/17/2023 08:52:12 06/17/2023 text/html complete tear of [...] finger RASHID MARKS JR, OTR/L, CHT [address] [place], [address], [facility] 06/17/2023 09:25:09 07/15/2023 text/html Consult requested by: Jorge Tong [facility] Physician: Hand dominance: RightLocation: Left Hand Pain [...] surgeons before? 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 Yes Is this injury associated with a Workers Compensation claim? No Patient arrived in: n/a Counter Molder Strength: right: left: Ms. Matos is here for a recheck. She states that her pain has increased slightly since the last visit and report that she has more swelling in the fingers. She describes it as a tooth ache . KEILY VELASCO MD [address] [place], [address], [facility] 07/15/2023 14:10:42 OBGyn Episode No OBEpisode recorded.
--- OUTSIDE RECORDS SUMMARY | 2025-10-11 08:09 | XMS_ITS | Clinical Summary ---
Author Organization Healthcare Address [address] [place] [address] Care Team Providers Care Electromatic Typist Name Role Phone Jeromy Abraham MD Primary [...] 01/14/2023 01/14/2018, 12/20, 01/09/2017, Additional history exists [id number] Vaccine ( season) 2025 12/23/2020, 11/25/2020 UKY-Influenza [...] 01/31/2018 11:41 AM EDT [facility] MR #: [id number] [facility] MIRELLA MATOS [place], [place] [address] 1970 (Age: 47) FW Collect Date: 01/14/2018 00:00 Receipt Date: 01/15/2018 09:48 Page 1 DEPARTMENT OF PATHOLOGY AND LABORATORY MEDICINE CYTOPATHOLOGY REPORT Email: [email or web address] ATTENDING MD/Practitioner: Les Srivastava MD Service: [facility] Location: [facility] OTHER MD(S): Navya Jessica APRN Reported: 01/31/2018 11:41 Collected: 01/14/2018 00:00 INTERPRETATION A. THIN PREP (VAGINAL): - ATYPICAL SQUAMOUS CELLS - UNDETERMINED SIGNIFICANCE. - FUNGAL ORGANISMS CONSISTENT WITH SHELTON SPECIES. SATISFACTORY FOR EVALUATION. Slide scanned and imaged by [employer] ThinPrep Imaging System with manual review of [...] results is suggested (please call Microbiology at [phone] for results). CLINICAL INFORMATION: Menstrual History: Post-hysterectomy: no remaining cervix Date of Last Menstrual Period: {Not Provided} Contraceptive History: control pills Other Clinical Conditions: If ASCUS and > 24 years of age, HPV/DNA testing requested. 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 SPECIMEN DESCRIPTION: A: THIN PREP (VAGINAL) THIN PREP PROCESS CELLULAR ENHANCEMENT ICD: R87.620 Atyp squam cell of undet signfc cyto smr vagn (ASC-US) B37.3 Candidiasis of vulva and vagina Z85.40 Prsnl history of malig neoplm of unsp female genital organ F: A; DX IMAGE 67332, 34119 C\V (PO) SNOMED CODES: A; [id number] [id number] E4080 M- 58443 In cases where a pathologist has signed out the report, the service has been rendered in part by a resident. The signing pathologist has performed and is responsible for the reported pathologic evaluation. Zonia Srivastava MD LAB PATHOLOGY ORDERABLES Maritza esqueda Result SUNChance (app) from Last 3 Months or Most Recently Relevant to Health Maintenance Insurance [facility] Care Teams Electromatic Typist Relationship Specialty Start Date End Date Jeromy Abraham MD [address] [place] [address] PCP - General 01/24/22
== END 2025-10-11 23:59 | disposition home or self-care (01) ==
LOC: RAD 08:06
PROVIDERS: PCP Internal Medicine; Visit Provider Internal Medicine
DX: M51.24 Other intervertebral disc displacement, thoracic region (principal); M48.04 Spinal stenosis, thoracic region; M79.2 Neuralgia and neuritis, unspecified
CPT/HCPCS: 72146

== ENCOUNTER 2025-10-26 08:22 | Day surgery (SDC) | payer OTHER, SELFPAY ==
[2025-10-26 08:28] VITALS: BP 113/72; PULSE 81; RESP 16; O2SAT 98; BMI 21.7
[2025-10-26] MEDS: DEXAMETHASONE 10MG/ML 1ML VIAL 10 MG (09:06)
[2025-10-26 09:09] VITALS: BP 121/79; PULSE 83; RESP 18; O2SAT 99
[2025-10-26 09:10] VITALS: BP 121/79; PULSE 83; RESP 18; O2SAT 99
[2025-10-26 09:17] VITALS: BP 132/82; PULSE 83; RESP 16; O2SAT 95
--- NOTE | 2025-10-26 09:17 | EXP.PAIN.PRO ---
Procedure Date: 10/26/25 Time: 09:00 Anesthesiologist:: Jorge Monsivais CRNA Complications:: None Pre-procedure Diagnosis:: Degenerative disc thoracic spine multiple levels. Thoracic radiculopathy multilevel thoracic disc bulge. Thoracic facet arthropathy. Thoracic spondylosis. Thoracic spinal stenosis Post-procedure Diagnosis:: Same. Indications for Procedure:: Patient is a pleasant 55-year-old female who comes our clinic today for T8-9 thoracic epidural steroid injection. Patient describes mid back pain as constant, dull, aching. She also reports bilateral thoracic radicular symptoms. She rates her pain 7/10. Procedure Details:: Procedure:Thoracic epidural steroid injection under fluoroscopy Informed consent was obtained and the risks and benefits of the procedure were explained to the patient. The patient was taken to the procedure room and noninvasive monitors placed, including noninvasive blood pressure cuff and pulse oximeter. The back was viewed using C-Arm fluoroscopy and prepped using Betadine as a cleansing solution and the T9-T10 interspace was palpated. Skin and subcutaneous tissues were anesthetized using lidocaine 1.5% and a 25-gauge needle. After this, an 18-gauge Touhy epidural needle was placed into the T8-9 interspace and advanced using fluoroscopic guidance and loss of resistance to air until the epidural space was encountered. After confirmation of needle placement in the epidural space, with dye, a solution containing lidocaine 1.5%, 4 mL and dexamethasone 10 mg were incrementally injected into the thoracic epidural space. The patient tolerated the procedure well with no complications. The patient was observed in the Pain Clinic and then discharged home neurologically intact. Plan and Disposition:: Patient was discharged without incident.
[2025-10-26] MEDS: IOPAMIDOL-200 (41%);10ML VIAL 10 ML IV (09:25)
== END 2025-10-26 09:17 | disposition home or self-care (01) ==
PROVIDERS: PCP Internal Medicine; Visit Provider Nurse Anesthetist, Certified Registered
DX: M51.14 Intervertebral disc disorders with radiculopathy, thoracic region (principal); Z90.49 Acquired absence of other specified parts of digestive tract; Z90.710 Acquired absence of both cervix and uterus; Z88.5 Allergy status to narcotic agent; Z79.899 Other long term (current) drug therapy
CPT/HCPCS: 62321; J1100; Q9966

== ENCOUNTER 2025-11-09 10:30 | Day surgery (SDC) | payer OTHER, SELFPAY ==
[2025-11-09 10:34] VITALS: BP 112/77; PULSE 83; O2SAT 99; BMI 21.7
[2025-11-09] MEDS: DEXAMETHASONE 10MG/ML 1ML VIAL 10 MG (10:45)
[2025-11-09] MEDS: BUPIVACAINE 0.25% 10ML INJ 25 MG IJ (10:45)
[2025-11-09] MEDS: LIDOCAINE 1% 5ML PF VIAL 5 ML (10:45)
[2025-11-09 10:46] VITALS: BP 120/82; PULSE 79; RESP 18; O2SAT 99
[2025-11-09 10:54] VITALS: BP 120/82; PULSE 79; RESP 18; O2SAT 99
--- NOTE | 2025-11-09 10:59 | P.PCN_ITS ---
Procedure Date: 11/09/25 Time: 10:45 Anesthesiologist:: Jorge Monsivais CRNA Complications:: None Pre-procedure Diagnosis:: Bilateral sacroiliitis Post-procedure Diagnosis:: Same Indications for Procedure:: Pleasant 55-year-old female who comes to clinic today for bilateral sacroiliac j oint injection of cortisone local anesthetic. Patient describes low lumbar back pain of midline bilaterally. Bilateral posterior hip pain. Difficulty transitioning from sitting to standing. Difficulty with ambulation due to bilateral posterior hip pain. She rates her pain 6/10. Procedure Details:: Procedure: Bilateral sacroiliac joint injections under fluoroscopy Informed consent was obtained and the risks and benefits of the procedure were explained to the patient.~ The patient was taken to the procedure room and noninvasive monitors were placed including a noninvasive blood pressure cuff and pulse oximeter.~ The patient was placed prone on the procedure table. Both hips were cleansed using Betadine as a cleansing solution. C-arm fluoroscopy was used to view the right sacroiliac joint.~ The skin and subcutaneous tissues were anesthetized using lidocaine 1.5% and a 25-gauge needle.~ After this, a 22-gauge spinal needle was inserted under fluoroscopic guidance into the inferior aspect of the right sacroiliac joint.~ Omnipaque dye was injected and good spread was seen throughout the joint.~ After this, approximately 5 mL of bupivacaine, 0.25% and dexamethasone 5 mg was incrementally injected into the right sacroiliac joint. We then moved to the left sacroiliac joint.~ The skin and subcutaneous tissues were anesthetized using lidocaine 1.5% and a 25-gauge needle.~ After this, a 22- gauge spinal needle was inserted under fluoroscopic guidance into the inferior aspect of the left sacroiliac joint.~ Omnipaque dye was injected and good spread was seen throughout the joint. After this, approximately 5 mL of bupivacaine, 0.25% and dexamethasone 5 mg was incrementally injected into the left sacroiliac joint.~ The patient tolerated the procedure well with no complications. The patient was observed in the Pain Clinic and then was discharged home neurologically intact. Plan and Disposition:: Patient was discharged without incident.
[2025-11-09 11:04] VITALS: BP 136/78; PULSE 69; RESP 16; O2SAT 99
== END 2025-11-09 11:06 | disposition home or self-care (01) ==
PROVIDERS: PCP Internal Medicine; Visit Provider Nurse Anesthetist, Certified Registered
DX: M46.1 Sacroiliitis, not elsewhere classified (principal); Z79.899 Other long term (current) drug therapy
CPT/HCPCS: 27096; J0665; J1100; J2003